=== PATIENT | male | born 1970 | race Caucasian/White ===

== ENCOUNTER 2024-03-30 11:21 | Outpatient (CLI) | payer OTHER, SELFPAY ==
[2024-03-30 12:55] LABS: INR 0.9; Prothrombin Time 12.1 Seconds (11.1-14.7)
[2024-03-30 13:05] LABS: Alanine Aminotransferase 50 U/L (6-50); Albumin Level 4.7 g/dL (3.5-5.1); Alkaline Phosphatase 61 U/L (38-126); Aspartate Amino Transferase 51 U/L (17-59); Bilirubin,Total 0.5 mg/dL (0.2-1.3)
[2024-03-30 13:48] LABS: Hepatitis B Surface Antigen Negative (Negative)
[2024-03-30 13:55] LABS: HAV RESULT Negative (Negative)
[2024-03-30 14:06] LABS: Hepatitis C Virus Antibody Negative (Negative)
[2024-03-30 14:11] LABS: Hepatitis B Core IgM Result Negative (Negative)
[2024-04-01 11:38] LABS: Alpha-1-Antitrypsin, QN 181 mg/dL (83-199)
[2024-04-03 11:43] LABS: LKM 1 Antibody <=20.0 U (<=20.0)
[2024-04-05 14:58] LABS: Actin Antibody (IgG) <20 U (<20)
[2024-04-13 11:49] LABS: Mitochondrial (M2) Ab (IgG) 21.1 U
[2024-04-17 03:38] LABS: ALT 37 U/L (9-46); Alpha-2-Macroglobulin 207 mg/dL (106-279); Apolipoprotein A1 206 mg/dL (94-176); Fibrosis Score 0.09; Fibrosis Stage F0; GGT 43 U/L (3-95); Haptoglobin 182 mg/dL (43-212); Necroinflammat Act Grade A0; Total Bilirubin 0.3 mg/dL (0.2-1.2)
== END 2024-03-30 11:22 | disposition home or self-care (01) ==
LOC: ANHLAB 11:23
PROVIDERS: Visit Provider Nurse Practitioner Family
DX: R79.89 Other specified abnormal findings of blood chemistry (principal)
CPT/HCPCS: 36415; 80074; 80076; 81596; 82103; 82977; 83520; 85610; 86364; 86376

== ENCOUNTER 2024-12-14 14:22 | Outpatient (CLI) | payer OTHER, SELFPAY ==
--- NOTE | ~2024-12-14 | US_ITS ---
EXAMINATION: US carotid duplex BI DATE: 12/14/2024 15:11 INDICATION: Abnormal findings of diagnostic imaging on outside institution CT. TECHNIQUE: Grayscale, color Doppler, and pulsed Doppler images of the cervical carotid arteries were obtained. The degree of vessel stenosis is placed in one of the following categories: normal, <50%, 5 0-69%, >=70% but less than near-occlusion, near-occlusion, or total occlusion. Note that percent sten osis relative to normal distal artery lumen diameter is indirectly measured from velocity measurement s as described by Ken, et al. Radiology 2003; 229:340-346. COMPARISON: None. FINDINGS: RIGHT: The right common carotid artery (CCA) peak systolic velocity (PSV) is 81 cm/s. The right internal car otid artery (ICA) PSV is 75 cm/s. The right ICA end-diastolic velocity (EDV) is 27 cm/s. The right IC A/CCA PSV ratio is 0.9. Grayscale and color Doppler images yield an estimate of <50% diameter reducti on from plaque in the ICA. The external carotid artery (ECA) PSV is 122 cm/s. There is antegrade flow in the right vertebral artery. LEFT: The left CCA PSV is 79 cm/s. The left ICA PSV is 69 cm/s. The left ICA EDV is 23 cm/s. The left ICA/C CA PSV ratio is 0.9. Grayscale and color Doppler images yield an estimate of <50% diameter reduction from plaque in the ICA. The ECA PSV is 101 cm/s. There is antegrade flow in the left vertebral artery . IMPRESSION: 1. <50% stenosis in the right internal carotid artery. 2. <50% stenosis in the left internal carotid artery. Reviewed, dictated and finalized at location A. OVEMENT DIRECTOR
--- OUTSIDE RECORDS SUMMARY | 2024-12-14 14:40 | XMS_ITS | Data Portability ---
Author Organization [facility] Address [address] [facility] [place] [address] Care Team Providers Care Brinell Tester Name Role Phone CHENTE RIVERA Primary Care Provider Assessment Encounter Date Assessment Date Assessment LastModified by Organization Details LastModified Time 02/13/2024 02/13/2024 He has been advised to stop smoking he is not interested in anything as far smoking cessation goes he has been warned of the ill effects of tobacco which were included but not limited to increased tumors of the aerodigestive tract increased incidence of heart attack stroke and cancer that could lead to sudden or chronic medical illness. He has also been asked to cut down on his drinking he says that right now he is not interested in doing that cancer heart disease liver disease leading to cirrhosis chronic medical illness or through a variety of cancers and through liver disease and increase in heart attack and other cardiovascular ailments have been discussed and he voiced understanding I will see him back in a month we will follow-up with liver ultrasound repeat liver studies as well as other testing MICHELLE copper iron ferritin ceruloplasmin but I suspect that his increased LFTs are from his drinking low-fat diet recheck his cholesterol status. Bee [email or web address] Not available 02/14/2024 14:59:25 05/12/2024 05/12/2024 he was warned of the ill effects of tobacco which were included but not limited to increased tumors of multiple organ systems increase incidence of heart attack stroke and cancer that can lead to sudden or chronic medical illness. He was told that if he does have alcohol liver disease imperative he quit drinking he is not interested in that right now also with fatty liver was told that he needs to quit drinking. It was discussed that he could have alcoholic liver disease or fatty liver and that progression to cirrhosis is the possibility that could end up and a life-threatening situation and necessitating a liver transplant. Follow up with me in 2 months. We will refer to hepatology at [facility] [email or web address] Not available 05/13/2024 07:44:26 08/18/2024 08/18/2024 continue current therapy he will follow up with me in 4 months smoking cessation abstinence from alcohol discussed dyslipidemia continue with his atorvastatin. Continues with his Creon for his exocrine pancreatic insufficiency. Blood work has been ordered. Cologuard was negative this year [email or web address] Not available 09/07/2024 21:35:16 Plan of Treatment Reminders Order Date Submit Date Provider Last Modified By Organization Details Last Modified Time Details Appointments ANY 15 2024 09:00A Heather Rivera MD Not available Not available Not available Lab CBC w/ auto diff 2023 [facility], [address] [place] [address], [facility] [address], [place], [address], 08/24/2024 09:14:31 lipid panel, serum 2023 024 [facility], [address] [facility], [address], [place], [address], 08/24/2024 09:14:28 CMP, serum or plasma 2023 024 [facility], [address] [place] [address], [facility] [address], [place], [address], 08/24/2024 09:14:29 PSA, total, serum or plasma 2023 024 [facility], [address] [facility], [address], [place], [address], 02/20/2024 15:10:49 noninva sive colorec junior cancer DNA + occult blood screeni ng, QL, stool 2023 024 [facility] (Cologuard Orders Only), [address], [address], [place], [address], 03/06/2024 12:19:31 MICHELLE (antinu clear antibod ies) screen, serum 2023 [facility], [address] [facility] [address], [address], [place], [place], [address], 02/20/2024 15:10:46 copper, serum or plasma 2023 024 [facility], [address] [facility] [address], [address], [place], [address], 02/20/2024 15:10:48 cerulop lasmin, serum 2023 [facility], [address] [place] [address] [address], [address], [place], [place], [address], 02/20/2024 15:10:47 iron + TIBC + ferriti n, serum 2023 024 [facility], [facility] [address], [address], [place], [address], 02/20/2024 15:10:50 lipid panel, serum 2023 024 [facility], [address] [place], [place] [address]monty [address], [address], [place], [address], 02/19/2024 06:22:54 CMP, serum or plasma 2023 024 [facility], [address] [facility] [address], [address], [place], [address], 02/19/2024 06:22:55 CBC w/ auto diff 2023 024 [facility], [address] [place] [address] [address], [address], [place], [place], [address], 02/19/2024 06:22:56 urinaly sis, microsc opic 2023 024 [facility], [address], [address], [place], [address], 02/20/2024 15:10:47 Referral hepatol ogist referra l 2023 024 [facility], [address] [place], [address], 11/04/2024 08:30:12 Procedures None recorde d. Surgeries None recorde d. Imaging US, liver 2023 024 [facility] [[email or web address] ([facility] Sched[facility]), [address] [place], [address], 03/01/2024 11:22:04 Medication Orders albuter ol sulfate HFA 90 mcg/act uation aerosol inhaler 2022 023 [facility], [address] [place] [address], [id number], 08/07/2023 13:28:59 Breo Ellipta 100 mcg-25 mcg/dos e powder for inhalat ion 2022 023 [facility], [address] [place] [address], [id number], 02/13/2024 11:57:48 Patient TargetsNo targets recorded. Patient Instructions Encounter Date Encounter Id Patient Instructions Last Modified By Organization Details Last Modified Time 02/05/2023 [id number] Quitting Tobacco : Care Instructions [facility] Not available 02/05/2023 13:44:48 Quitting Tobacco : Care Instructions [facility] Not available 02/05/2023 13:44:48 chronic obstructive pulmonary disease (COPD): care instructions [facility] Not available 02/05/2023 13:44:47 learning about copd and how to prevent lung infections [facility] Not available 02/05/2023 13:44:47 08/07/2023 [id number] chronic obstructive pulmonary disease (COPD): care instructions [facility] Not available 08/07/2023 13:13:29 learning about copd and how to prevent lung infections [email or web address] Not available 08/07/2023 13:13:29 05/12/2024 [id number] Quitting Tobacco : Care Instructions [email or web address] Not available 05/12/2024 17:42:58 Reason for Referral Pediatrician Referral for He patomegaly Referring Physician: Chente Rivera, Internal Medicine, Encounter Date: 05/12/2024 Results Created Date Observation Date Name Description Value Unit Range Abnormal Flag Note LastModifiedBy Organization Detail LastModifiedTime 09/03/2009/03/2023 COMP. METAB OLIC PANEL (14) glucose 63 mg/dL 70-99 below low normal Not Available [facility] [address] [place], [address], 09/04/2023 06:17:27 09/03/20 23 09/03/2023 COMP. METAB OLIC PANEL (14) BUN 10 mg/dL 6-24 Not Available [facility] [address] [place], [address], 09/04/2023 06:17:27 09/03/2009/03/2023 COMP. METAB OLIC PANEL (14) creatinine 0.86 mg/dL 0.76-1 .27 Not Available [facility] [address] [place], [address], 09/04/2023 06:17:27 09/03/2009/03/2023 COMP. METAB OLIC PANEL (14) eGFR 105 >=60 Units for eGFR value s are mL/mi n/1.7 3 The eGFR Calcu latio n has not been valid ated for patie nts under the age of 18. If test resul ts are displ ayed for a patie nt under the age of 18, disre chris that value . Not Available [facility] [address] [place], [address], 09/04/2023 06:17:27 09/03/20 23 09/03/2023 COMP. METAB OLIC PANEL (14) BUN/creatini ne ratio 11 9-20 Not Available [facility] Department [address] [place] [address], [address], 09/04/2023 06:17:27 09/03/20 23 09/03/2023 COMP. METAB OLIC PANEL (14) sodium 141 mmol/ L 134-14 4 Not Available [facility] [address] [place] [address], [address], 09/04/2023 06:17:27 09/03/20 23 09/03/2023 COMP. METAB OLIC PANEL (14) potassium 6.0 mmol/ L 3.5-5. 2 above high normal RESUL TS VERIF IED AND CARRILLO D TO [] BY Hang cat RN PROCEDURE AT 2008 ON 09/03. Not Available [facility] [address] [place] [address], [address], 09/04/2023 06:17:27 09/03/20 23 09/03/2023 COMP. METAB OLIC PANEL (14) chloride 101 mmol/ L 96-106 Not Available [facility] [address] [place] [address], [address], 09/04/2023 06:17:27 09/03/20 23 09/03/2023 COMP. METAB OLIC PANEL (14) carbon dioxide, total 25 mmol/ L 20-29 Not Available [facility] [address] [place] [address], [address], 09/04/2023 06:17:27 09/03/20 23 09/03/2023 COMP. METAB OLIC PANEL (14) calcium 10.0 mg/dL 8.7-10 .2 Not Available [facility] [address] [place] [address], [address], 09/04/2023 06:17:27 09/03/20 23 09/03/2023 COMP. METAB OLIC PANEL (14) protein, total 7.5 g/dL 6.0-8. 5 Not Available [facility] [address] [place], [address], 09/04/2023 06:17:27 09/03/20 23 09/03/2023 COMP. METAB OLIC PANEL (14) albumin 4.9 g/dL 3.8-4. 9 Not Available [facility] [address] [place], [address], 09/04/2023 06:17:27 09/03/20 23 09/03/2023 COMP. METAB OLIC PANEL (14) globulin, total 2.6 g/dL 1.5-4. 5 Not Available [facility] [address] [place], [address], 09/04/2023 06:17:27 09/03/20 23 09/03/2023 COMP. METAB OLIC PANEL (14) A/G ratio 1.9 1.2-2. 2 Not Available [facility] [address] [place], [address], 09/04/2023 06:17:27 09/03/20 23 09/03/2023 COMP. METAB OLIC PANEL (14) bilirubin, total 0.3 mg/dL 0.0-1. 2 Not Available [facility] [address] [place], [address], 09/04/2023 06:17:27 09/03/20 23 09/03/2023 COMP. METAB OLIC PANEL (14) alkaline phosphatase 79 IU/L 44-121 Not Available [facility] Department [address] [place], [address], 09/04/2023 06:17:27 09/03/20 23 09/03/2023 COMP. METAB OLIC PANEL (14) AST (SGOT) 158 IU/L 0-40 above high normal Not Available [facility] [address] [place], [address], 09/04/2023 06:17:27 09/03/2009/03/2023 COMP. METAB OLIC PANEL (14) ALT (SGPT) 162 IU/L 0-44 above high normal Not Available [facility] [address] [place], [address], 09/04/2023 06:17:27 09/03/2009/03/2023 CBC WITH DIFFE RENTI AL/PL ATELE T WBC 4.9 x10e3 /uL 3.4-10 .8 Not Available [facility] [address] [place], [address], 09/04/2023 06:17:27 09/03/2009/03/2023 CBC WITH DIFFE RENTI AL/PL ATELE T RBC 5.18 x10e6 /uL 4.14-5 .80 Not Available [facility] [address] [place], [address], 09/04/2023 06:17:27 09/03/2009/03/2023 CBC WITH DIFFE RENTI AL/PL ATELE T hemoglobin 16.4 g/dL 13.0-1 7.7 Not Available [facility] [address] [place], [address], 09/04/2023 06:17:27 09/03/2009/03/2023 CBC WITH DIFFE RENTI AL/PL ATELE T hematocrit 50.9 % 37.5-5 1.0 Not Available [facility] [address] [place], [address], 09/04/2023 06:17:27 09/03/2009/03/2023 CBC WITH DIFFE RENTI AL/PL ATELE T MCV 98 fL 79-97 above high normal Not Available [facility] [address] [place], [address], 09/04/2023 06:17:27 09/03/2009/03/2023 CBC WITH DIFFE RENTI AL/PL ATELE T MCH 31.7 pg 26.6-3 3.0 Not Available [facility] [address] [place], [address], 09/04/2023 06:17:27 09/03/20 23 09/03/2023 CBC WITH DIFFE RENTI AL/PL ATELE T MCHC 32.2 g/dL 31.5-3 5.7 Not Available [facility] [address] [place], [address], 09/04/2023 06:17:27 09/03/2009/03/2023 CBC WITH DIFFE RENTI AL/PL ATELE T RDW 12.4 % 11.5-1 4.5 Not Available [facility] [address] [place], [address], 09/04/2023 06:17:27 09/03/2009/03/2023 CBC WITH DIFFE RENTI AL/PL ATELE T platelets 209 x10e3 /uL 150-45 0 Not Available [facility] [address] [place], [address], 09/04/2023 06:17:27 09/03/20 23 09/03/2023 CBC WITH DIFFE RENTI AL/PL ATELE T neutrophils 41 % notest b. Not Available [facility] [address] [place], [address], 09/04/2023 06:17:27 09/03/20 23 09/03/2023 CBC WITH DIFFE RENTI AL/PL ATELE T lymphs 42 % notest b. Not Available [facility] [address] [place], [address], 09/04/2023 06:17:27 09/03/20 23 09/03/2023 CBC WITH DIFFE RENTI AL/PL ATELE T monocytes 12 % notest b. Not Available [facility] [address] [place], [address], 09/04/2023 06:17:27 09/03/2009/03/2023 CBC WITH DIFFE RENTI AL/PL ATELE T eos 4 % notest b. Not Available [facility] [address] [place], [address], 09/04/2023 06:17:27 09/03/20 23 09/03/2023 CBC WITH DIFFE RENTI AL/PL ATELE T basos 1 % notest b. Not Available [facility] [address] [place], [address], 09/04/2023 06:17:27 09/03/2009/03/2023 CBC WITH DIFFE RENTI AL/PL ATELE T neutrophils (absolute) 2.0 x10e3 /uL 1.4-7. 0 Not Available [facility] [address] [place], [address], 09/04/2023 06:17:27 09/03/2009/03/2023 CBC WITH DIFFE RENTI AL/PL ATELE T lymphs (absolute) 2.1 x10e3 /uL 0.7-3. 1 Not Available [facility] [address] [place], [address], 09/04/2023 06:17:27 09/03/2009/03/2023 CBC WITH DIFFE RENTI AL/PL ATELE T monocytes(ab solute) 0.6 x10e3 /uL 0.1-0. 9 Not Available [facility] [address] [place], [address], 09/04/2023 06:17:27 09/03/2009/03/2023 CBC WITH DIFFE RENTI AL/PL ATELE T eos (absolute) 0.2 x10e3 /uL 0.0-0. 4 Not Available [facility] [address] [place] [address], [address], 09/04/2023 06:17:27 09/03/2009/03/2023 CBC WITH DIFFE RENTI AL/PL ATELE T baso (absolute) 0.1 x10e3 /uL 0.0-0. 2 Not Available [facility] [address] [place], [address], 09/04/2023 06:17:27 09/03/2009/03/2023 CBC WITH DIFFE RENTI AL/PL ATELE T immature granulocytes 0.2 % notest b. Not Available [facility] [address] [place], [address], 09/04/2023 06:17:27 09/03/2009/03/2023 CBC WITH DIFFE RENTI AL/PL ATELE T immature grans (abs) 0.0 x10e3 /uL 0.0-0. 1 Not Available [facility] [address] [place], [address], 09/04/2023 06:17:27 09/03/2009/03/2023 CBC WITH DIFFE RENTI AL/PL ATELE T NRBC 0 % 0-0 Not Available [facility] [address] [place], [address], 09/04/2023 06:17:27 10/09/2010/10/2023 HCV ANTIB LILIANA hep C virus Ab Non Reacti ve nonrea ctive HCV antib liliana alone does not diffe renti ate betwe en previ ously resol domingo infec tion and activ e infec tion. Equiv ocal and React hong HCV antib liliana resul ts shoul d be follo wed up with an HCV RNA test to suppo rt the diagn osis of activ e HCV infec tion. Not Available [facility] ([facility]) [address] [facility], [place], [address], 10/10/2023 09:15:23 10/09/20 23 10/10/2023 HBSAG SCREE N HBsAg screen Negati ve negati ve Not Available [facility] ([facility]) [address] [facility], [place], [address], 10/10/2023 09:15:24 02/18/20 24 02/19/2024 LIPID PANEL cholesterol, total 225 mg/dL 100-19 9 above high normal Not Available [facility] [address] [place] [address], [address], 02/19/2024 06:22:54 02/18/20 24 02/19/2024 LIPID PANEL triglyceride s 50 mg/dL 0-149 Not Available [facility] Department [address] [place] [address], [address], 02/19/2024 06:22:54 02/18/20 24 02/19/2024 LIPID PANEL HDL cholesterol 89 mg/dL 40-999 Not Available [facility] Department [address] [place] [address], [address], 02/19/2024 06:22:54 02/18/20 24 02/19/2024 LIPID PANEL VLDL cholesterol elba 10 mg/dL 5-40 Not Available [facility] Department [address] [place] [address], [address], 02/19/2024 06:22:54 02/18/20 24 02/19/2024 LIPID PANEL LDL chol calc (nih) 134 mg/dL 0-99 above high normal Not Available [facility] [address] [place] [address], [address], 02/19/2024 06:22:54 02/18/20 24 02/19/2024 COMP. METAB OLIC PANEL (14) glucose 73 mg/dL 70-99 Not Available [facility] [address] [place] [address], [address], 02/19/2024 06:22:55 02/18/20 24 02/19/2024 COMP. METAB OLIC PANEL (14) BUN 16 mg/dL 6-24 Not Available [facility] [address] [place] [address], [address], 02/19/2024 06:22:55 02/18/20 24 02/19/2024 COMP. METAB OLIC PANEL (14) creatinine 0.82 mg/dL 0.76-1 .27 Not Available [facility] [address] [place] [address], [address], 02/19/2024 06:22:55 02/18/20 24 02/19/2024 COMP. METAB OLIC PANEL (14) eGFR 106 >=60 Units for eGFR value s are mL/mi n/1.7 3 The eGFR Calcu latio n has not been valid ated for patie nts under the age of 18. If test resul ts are displ ayed for a patie nt under the age of 18, disre chris that value . Not Available [facility] [address] [place] [address], [address], 02/19/2024 06:22:55 02/18/20 24 02/19/2024 COMP. METAB OLIC PANEL (14) BUN/creatini ne ratio 20 9-20 Not Available [facility] Department [address] [place] [address], [address], 02/19/2024 06:22:55 02/18/20 24 02/19/2024 COMP. METAB OLIC PANEL (14) sodium 141 mmol/ L 134-14 4 Not Available [facility] [address] [place] [address], [address], 02/19/2024 06:22:55 02/18/20 24 02/19/2024 COMP. METAB OLIC PANEL (14) potassium 5.5 mmol/ L 3.5-5. 2 above high normal Not Available [facility] [address] [place] [address], [address], 02/19/2024 06:22:55 02/18/20 24 02/19/2024 COMP. METAB OLIC PANEL (14) chloride 100 mmol/ L 96-106 Not Available [facility] [address] [place] [address], [address], 02/19/2024 06:22:55 02/18/20 24 02/19/2024 COMP. METAB OLIC PANEL (14) carbon dioxide, total 26 mmol/ L 20-29 Not Available [facility] [address] [place] [address], [address], 02/19/2024 06:22:55 02/18/20 24 02/19/2024 COMP. METAB OLIC PANEL (14) calcium 10.1 mg/dL 8.7-10 .2 Not Available [facility] [address] [place] [address], [address], 02/19/2024 06:22:55 02/18/20 24 02/19/2024 COMP. METAB OLIC PANEL (14) protein, total 7.8 g/dL 6.0-8. 5 Not Available [facility] [address] [place] [address], [address], 02/19/2024 06:22:55 02/18/20 24 02/19/2024 COMP. METAB OLIC PANEL (14) albumin 5.0 g/dL 3.8-4. 9 above high normal Not Available [facility] [address] [place] [address], [address], 02/19/2024 06:22:55 02/18/20 24 02/19/2024 COMP. METAB OLIC PANEL (14) globulin, total 2.8 g/dL 1.5-4. 5 Not Available [facility] [address] [place] [address], [address], 02/19/2024 06:22:55 02/18/20 24 02/19/2024 COMP. METAB OLIC PANEL (14) A/G ratio 1.7 1.2-2. 2 Not Available [facility] [address] [place] [address] [place], [address], 02/19/2024 06:22:55 02/18/2002/19/2024 COMP. METAB OLIC PANEL (14) bilirubin, total 0.3 mg/dL 0.0-1. 2 Not Available [facility] [address] [place], [address], 02/19/2024 06:22:55 02/18/20 24 02/19/2024 COMP. METAB OLIC PANEL (14) alkaline phosphatase 87 IU/L 44-121 Not Available [facility] Department [address] [place], [address], 02/19/2024 06:22:55 02/18/20 24 02/19/2024 COMP. METAB OLIC PANEL (14) AST (SGOT) 42 IU/L 0-40 above high normal Not Available [facility] [address] [place], [address], 02/19/2024 06:22:55 02/18/20 24 02/19/2024 COMP. METAB OLIC PANEL (14) ALT (SGPT) 53 IU/L 0-44 above high normal Not Available [facility] [address] [place], [address], 02/19/2024 06:22:55 02/18/2002/18/2024 CBC WITH DIFFE RENTI AL/PL ATELE T WBC 5.3 x10e3 /uL 3.4-10 .8 Not Available [facility] [address] [place], [address], 02/19/2024 06:22:56 02/18/2002/18/2024 CBC WITH DIFFE RENTI AL/PL ATELE T RBC 5.25 x10e6 /uL 4.14-5 .80 Not Available [facility] [address] [place], [address], 02/19/2024 06:22:56 04/24/20 24 02/18/2024 CBC WITH DIFFE RENTI AL/PL ATELE T hemoglobin 16.9 g/dL 13.0-1 7.7 Not Available [facility] [address] [place], [address], 02/19/2024 06:22:56 02/18/2002/18/2024 CBC WITH DIFFE RENTI AL/PL ATELE T hematocrit 51.5 % 37.5-5 1.0 above high normal Not Available [facility] [address] [place], [address], 02/19/2024 06:22:56 02/18/2002/18/2024 CBC WITH DIFFE RENTI AL/PL ATELE T MCV 98 fL 79-97 above high normal Not Available [facility] [address] [place], [address], 02/19/2024 06:22:56 02/18/2002/18/2024 CBC WITH DIFFE RENTI AL/PL ATELE T MCH 32.2 pg 26.6-3 3.0 Not Available [facility] [address] [place], [address], 02/19/2024 06:22:56 02/18/20 24 02/18/2024 CBC WITH DIFFE RENTI AL/PL ATELE T MCHC 32.8 g/dL 31.5-3 5.7 Not Available [facility] [address] [place], [address], 02/19/2024 06:22:56 02/18/2002/18/2024 CBC WITH DIFFE RENTI AL/PL ATELE T RDW 12.4 % 11.5-1 4.5 Not Available [facility] [address] [place], [address], 02/19/2024 06:22:56 02/18/2002/18/2024 CBC WITH DIFFE RENTI AL/PL ATELE T platelets 246 x10e3 /uL 150-45 0 Not Available [facility] [address] [place], [address], 02/19/2024 06:22:56 02/18/2002/18/2024 CBC WITH DIFFE RENTI AL/PL ATELE T neutrophils 49 % notest b. Not Available [facility] [address] [place], [address], 02/19/2024 06:22:56 02/18/20 24 02/18/2024 CBC WITH DIFFE RENTI AL/PL ATELE T lymphs 32 % notest b. Not Available [facility] [address] [place], [address], 02/19/2024 06:22:56 02/18/2002/18/2024 CBC WITH DIFFE RENTI AL/PL ATELE T monocytes 16 % notest b. Not Available [facility] [address] [place], [address], 02/19/2024 06:22:56 02/18/2002/18/2024 CBC WITH DIFFE RENTI AL/PL ATELE T eos 3 % notest b. Not Available [facility] [address] [place], [address], 02/19/2024 06:22:56 02/18/2002/18/2024 CBC WITH DIFFE RENTI AL/PL ATELE T basos 1 % notest b. Not Available [facility] [address] [place], [address], 02/19/2024 06:22:56 02/18/2002/18/2024 CBC WITH DIFFE RENTI AL/PL ATELE T neutrophils (absolute) 2.6 x10e3 /uL 1.4-7. 0 Not Available [facility] [address] [place] [address], [address], 02/19/2024 06:22:56 02/18/20 24 02/18/2024 CBC WITH DIFFE RENTI AL/PL ATELE T lymphs (absolute) 1.7 x10e3 /uL 0.7-3. 1 Not Available [facility] [address] [place], [address], 02/19/2024 06:22:56 02/18/20 24 02/18/2024 CBC WITH DIFFE RENTI AL/PL ATELE T monocytes(ab solute) 0.9 x10e3 /uL 0.1-0. 9 Not Available [facility] [address] [place], [address], 02/19/2024 06:22:56 02/18/20 24 02/18/2024 CBC WITH DIFFE RENTI AL/PL ATELE T eos (absolute) 0.1 x10e3 /uL 0.0-0. 4 Not Available [facility] [address] [place], [address], 02/19/2024 06:22:56 02/18/20 24 02/18/2024 CBC WITH DIFFE RENTI AL/PL ATELE T baso (absolute) 0.1 x10e3 /uL 0.0-0. 2 Not Available [facility] [address] [place], [address], 02/19/2024 06:22:56 02/18/20 24 02/18/2024 CBC WITH DIFFE RENTI AL/PL ATELE T immature granulocytes 0.4 % notest b. Not Available [facility] [address] [place], [address], 02/19/2024 06:22:56 02/18/20 24 02/18/2024 CBC WITH DIFFE RENTI AL/PL ATELE T immature grans (abs) 0.0 x10e3 /uL 0.0-0. 1 Not Available [facility] [address] [place], [address], 02/19/2024 06:22:56 02/18/20 24 02/18/2024 CBC WITH DIFFE RENTI AL/PL ATELE T NRBC 0 % 0-0 Not Available [facility] [address], [place], [address], 02/19/2024 06:22:56 02/18/20 24 02/19/2024 MICHELLE W/REF ROJELIO MICHELLE direct Negati ve negati ve Not Available [facility] ([facility]) [address] [facility], [place], [address], 02/20/2024 15:10:46 02/18/20 24 02/19/2024 MICRO SCOPI C EXAMI NATIO N WBC None seen /hpf 0-5 Not Available [facility] ([facility]) [address] [facility], [place], [address], 02/20/2024 15:10:47 02/18/20 24 02/19/2024 MICRO SCOPI C EXAMI NATIO N RBC None seen /hpf 0-2 Not Available [facility] ([facility]) [address] [facility], [place], [address], 02/20/2024 15:10:47 02/18/20 24 02/19/2024 MICRO SCOPI C EXAMI NATIO N epithelial cells (non renal) None seen /hpf 0-10 Not Available [facility] ([facility]) [address] [facility], [place], [address], 02/20/2024 15:10:47 02/18/20 24 02/19/2024 MICRO SCOPI C EXAMI NATIO N casts None seen /lpf nonese en Not Available [facility] ([facility]) [address] [facility], [place], [address], 02/20/2024 15:10:47 02/18/20 24 02/19/2024 MICRO SCOPI C EXAMI NATIO N bacteria None seen nonese en/few Not Available [facility] ([facility]) [address] [facility], [place], [address], 02/20/2024 15:10:47 02/18/2002/19/2024 CERUL OPLAS MIN ceruloplasmi n 22.1 mg/dL 16.0-3 1.0 Not Available [facility] ([facility]) [address] [facility], [place], [address], 02/20/2024 15:10:47 02/18/2002/20/2024 COPPE R, SERUM OR PLASM A copper, serum or plasma 84 ug/dL 69-132 Detec tion Limit = 5 Not Available [facility] ([facility]) [address] [facility], [place], [address], 02/20/2024 15:10:48 02/18/2002/19/2024 PROST ATE-S PECIF IC AG prostate specific Ag 1.0 NG/mL 0.0-4. 0 Blossom ECLIA metho dolog y. Accor ding to the Ameri can Urolo gical Assoc iatio n, Serum PSA shoul d decre ase and remai n at undet ectab le level s after radic al prost atect sharmin. The AUA defin es bioch emica l recur rence as an initi al PSA value 0.2 ng/mL or great er follo wed by a subse quent confi rmato ry PSA value 0.2 ng/mL or great er. Value s obtai aris with diffe rent assay metho ds or kits canno t be used inter jaeger eably . Resul ts canno t be inter prete d as absol pass[place]dy evide nce of the prese nce or absen ce of man worley se. Not Available [facility] ([facility]) [address] [facility], [place], [address], 02/20/2024 15:10:49 02/18/2002/19/2024 FE+TI BC+FE R iron bind.cap.(TI BC) 321 ug/dL 250-45 0 Not Available [facility] ([facility]) [address] [facility], [place], [address], 02/20/2024 15:10:49 02/18/20 24 02/19/2024 FE+TI BC+FE R UIBC 190 ug/dL 111-34 3 Not Available [facility] ([facility]) [address] [facility], [place], [address], 02/20/2024 15:10:49 02/18/20 24 02/19/2024 FE+TI BC+FE R iron 131 ug/dL 38-169 Not Available [facility] ([facility]) [address] [place], [address], 02/20/2024 15:10:49 02/18/20 24 02/19/2024 FE+TI BC+FE R iron saturation 41 % 15-55 Not Available [facility] ([facility]) [address] [facility], [place], [address], 02/20/2024 15:10:49 02/18/20 24 02/19/2024 FE+TI BC+FE R ferritin 405 NG/mL 30-400 above high normal Not Available [facility] ([facility]) [address] [facility], [place], [address], 02/20/2024 15:10:49 02/28/2002/28/2024 COLOG UARD cologuard result reportable Negati ve negati ve normal NEGAT HONG TEST RESUL T. A negat hong Colog uard resul t indic ates a low likel ihood that a color ectal cance r (CRC) or advan cathie adeno ma (anthony omato us polyp s with more advan cathie pre-m align ant featu res) is prese nt. The [facility] e that a perso n with a negat hong Colog uard test has a color ectal cance r is less than 1 in 1500 (nega tive predi ctive value >99.9 %) or has an advan cathie adeno ma is less than 5.3% (nega tive predi ctive value 94.7% ). These data are based on a prosp ectiv e cross -sect ional study of 10,00 0 indiv idual s at [facility] risk for color ectal cance r who were scree aris with both Colog uard and colon oscop y. (Hardeep Arenas. et al, N Engl J Med 2014; 370(1 4):12 86-12 97) The clark l value (refe rence range ) for this assay is negat hong. COLOG UARD RE-SC REENI NG RECOM MENDA TION: Perio dic color ectal cance r scree nayana is an impor tant part of preve ntive healt hcare for asymp tomat ic indiv idual s at [place] [facility] risk for color ectal cance r. Follo wing a negat hong Colog uard resul t, the Ameri can Cance r Socie ty and U.S. Multi -Soci ety Task Force scree nayana guide lines recom mend a Colog uard re-sc reeni ng inter todd of 3 years . Refer ences : Ameri can Cance r Socie ty Guide line for Color ectal Cance r Scree nayana: https ://mark dean.brian cer.o rg/ca ncer/ colon -rect al-ca ncer/ detec tion- diagn osis- stagi ng/ac s-rec ommen datio ns.ht ml.; Enoch BELTRE, Lucy GLASER, Amy DOTSON, Color ectal Cance r Scree nayana: Recom menda tions for Physi cians and Patie nts from the U.S. Multi -Soci ety Task Force on Color ectal Cance r Scree nayana , Am Sandrita Gastr fionante rolog y 2017; 112:1 016-1 030. TEST DESCR IPTIO N: [place] algor ithmi c keaton sis of stool DNA-b iodemar kers with hemog lobin immun oassa y. Quant itati ve value s of indiv idual bioma rkers are not repor table and are not assoc iated with indiv idual bioma rker resul t refer ence range s. Colog uard is inten ded for color ectal cance r scree nayana of adult s of eithe r sex, 45 years or older , who are at [facility] for color ectal cance r (CRC) . Colog uard has been appro domingo for use by the U.S. FDA. The perfo rmanc e of Colog uard was estab lishe d in a cross secti onal study of [facility] adult s aged 50-84 . Colog uard perfo rmanc e in patie nts ages 45 to 49 years was estim ated by marco a-g grecia keaton sis of near- age group s. Colon oscop ies perfo rmed for a posit hong resul t may find as the most clini annamaria signi fican t lesio n: color ectal cance r [4.0% ], advan cathie adeno ma (incl uding sessi le adry elizabeth polyp s great er than or equal to 1cm diame ter) [20%] or non- advan cathie adeno ma [31%] ; or no color ectal neopl rosalba [45%] . These estim ates are deriv ed from a prosp ectiv e cross -sect ional scree nayana study of 0 indiv idual s at [facility] for color ectal cance r who were scree aris with both Colog uard and colon oscop y. (Hardeep Hernández et al, N Engl J Med 2014; 370(1 4):12 86-12 97.) Colog uard may produ ce a false negat hong or false posit hong resul t (no color ectal cance r or preca ncero us polyp prese nt at colon oscop y follo w up). A negat hong Colog uard test resul t does not guara ntee the absen ce of CRC or advan cathie adeno ma (pre- cance r). The curre nt Colog uard scree nayana inter todd is every 3 years . (Amer ican Cance r Socie ty and U.S. Multi -Soci ety Task Force ). Colog uard perfo rmanc e data in a 10,00 0 patie nt pivot al study using colon oscop y as the refer ence metho d can be acces sed at the follo wing locat ion: www.e xactl abs.c om/re luz . Addit ional descr iptio n of the Colog uard test proce ss, warni ngs and preca ution s can be found at www.c natasha vazquezd.c om. Not Available [facility] (Cologuard Orders Only) [address], [place], [address], 03/06/2024 12:19:31 08/23/2008/24/2024 LIPID PANEL cholesterol, total 236 mg/dL 100-19 9 above high normal Not Available [facility] ([facility]) [address] [place], [address], 08/24/2024 09:14:28 08/23/2008/24/2024 LIPID PANEL triglyceride s 152 mg/dL 0-149 above high normal Not Available [facility] ([facility]) [address] [place], [address], 08/24/2024 09:14:28 08/23/2008/24/2024 LIPID PANEL HDL cholesterol 46 mg/dL >39 Not Available [facility] ([facility]) [address] [place], [address], 08/24/2024 09:14:28 08/23/2008/24/2024 LIPID PANEL VLDL cholesterol elba 28 mg/dL 5-40 Not Available [facility] ([facility]) [address] [place], [address], 08/24/2024 09:14:28 08/23/2008/24/2024 LIPID PANEL LDL chol calc ([facility]) 162 mg/dL 0-99 above high normal Not Available [facility] ([facility]) [address] [place], [address], 08/24/2024 09:14:28 08/23/20 24 08/24/2024 COMP. METAB OLIC PANEL (14) glucose 148 mg/dL 70-99 above high normal Not Available [facility] ([facility]) [address] [place], [address], 08/24/2024 09:14:29 08/23/20 24 08/24/2024 COMP. METAB OLIC PANEL (14) BUN 16 mg/dL 6-24 Not Available [facility] ([facility]) [address] [place], [address], 08/24/2024 09:14:29 08/23/2008/24/2024 COMP. METAB OLIC PANEL (14) creatinine 1.02 mg/dL 0.76-1 .27 Not Available [facility] ([facility]) [address] [facility], [place], [address], 08/24/2024 09:14:29 08/23/20 24 08/24/2024 COMP. METAB OLIC PANEL (14) eGFR 88 mL/mi n/1.7 3 >59 Not Available [facility] ([facility]) [address] [place], [address], 08/24/2024 09:14:29 08/23/20 24 08/24/2024 COMP. METAB OLIC PANEL (14) BUN/creatini ne ratio 16 9-20 Not Available [facility] ([facility]) [address] [place], [address], 08/24/2024 09:14:29 08/23/20 24 08/24/2024 COMP. METAB OLIC PANEL (14) sodium 140 mmol/ L 134-14 4 Not Available [facility] ([facility]) [address] [place], [address], 08/24/2024 09:14:29 08/23/20 24 08/24/2024 COMP. METAB OLIC PANEL (14) potassium 5.4 mmol/ L 3.5-5. 2 above high normal Not Available [facility] ([facility]) [address] [place], [address], 08/24/2024 09:14:29 08/23/2008/24/2024 COMP. METAB OLIC PANEL (14) chloride 100 mmol/ L 96-106 Not Available [facility] ([facility]) [address] [place], [address], 08/24/2024 09:14:29 08/23/2008/24/2024 COMP. METAB OLIC PANEL (14) carbon dioxide, total 24 mmol/ L Not Available [facility] ([facility]) [address] [place], [address], 08/24/2024 09:14:29 08/23/2008/24/2024 COMP. METAB OLIC PANEL (14) calcium 9.9 mg/dL 8.7-10 .2 Not Available [facility] ([facility]) [address] [place], [address], 08/24/2024 09:14:29 08/23/2008/24/2024 COMP. METAB OLIC PANEL (14) protein, total 7.0 g/dL 6.0-8. 5 Not Available [facility] ([facility]) [address] [place], [address], 08/24/2024 09:14:29 08/23/2008/24/2024 COMP. METAB OLIC PANEL (14) albumin 4.4 g/dL 3.8-4. 9 Not Available [facility] ([facility]) [address] [place], [address], 08/24/2024 09:14:29 08/23/20 24 08/24/2024 COMP. METAB OLIC PANEL (14) globulin, total 2.6 g/dL 1.5-4. 5 Not Available [facility] ([facility]) [address] [facility], [place], [address], 08/24/2024 09:14:29 08/23/2008/24/2024 COMP. METAB OLIC PANEL (14) bilirubin, total 0.4 mg/dL 0.0-1. 2 Not Available [facility] ([facility]) [address] [facility], [place], [address], 08/24/2024 09:14:29 08/23/2008/24/2024 COMP. METAB OLIC PANEL (14) alkaline phosphatase 89 IU/L 44-121 Not Available [facility] ([facility]) [address] [facility], [place], [address], 08/24/2024 09:14:29 08/23/20 24 08/24/2024 COMP. METAB OLIC PANEL (14) AST (SGOT) 23 IU/L 0-40 Not Available [facility] ([facility]) [address] [facility], [place], [address], 08/24/2024 09:14:29 08/23/2008/24/2024 COMP. METAB OLIC PANEL (14) ALT (SGPT) 31 IU/L 0-44 Not Available [facility] ([facility]) [address] [facility], [place], [address], 08/24/2024 09:14:29 08/23/2008/24/2024 CBC WITH DIFFE RENTI AL/PL ATELE T WBC 6.1 x10e3 /uL 3.4-10 .8 Not Available [facility] ([facility]) [address] [facility], [place], [address], 08/24/2024 09:14:31 08/23/2008/24/2024 CBC WITH DIFFE RENTI AL/PL ATELE T RBC 4.87 x10e6 /uL 4.14-5 .80 Not Available [facility] ([facility]) [address] [facility], [place], [address], 08/24/2024 09:14:31 08/23/2008/24/2024 CBC WITH DIFFE RENTI AL/PL ATELE T hemoglobin 15.7 g/dL 13.0-1 7.7 Not Available [facility] ([facility]) [address] [facility], [place], [address], 08/24/2024 09:14:31 08/23/2008/24/2024 CBC WITH DIFFE RENTI AL/PL ATELE T hematocrit 46.0 % 37.5-5 1.0 Not Available [facility] ([facility]) [address] [facility], [place], [address], 08/24/2024 09:14:31 08/23/2008/24/2024 CBC WITH DIFFE RENTI AL/PL ATELE T MCV 95 fL 79-97 Not Available [facility] ([facility]) [address] [facility], [place], [address], 08/24/2024 09:14:31 08/23/2008/24/2024 CBC WITH DIFFE RENTI AL/PL ATELE T MCH 32.2 pg 26.6-3 3.0 Not Available [facility] ([facility]) [address] [facility], [place], [address], 08/24/2024 09:14:31 08/23/2008/24/2024 CBC WITH DIFFE RENTI AL/PL ATELE T MCHC 34.1 g/dL 31.5-3 5.7 Not Available [facility] ([facility]) [address] [facility], [place], [address], 08/24/2024 09:14:31 08/23/2008/24/2024 CBC WITH DIFFE RENTI AL/PL ATELE T RDW 11.7 % 11.6-1 5.4 Not Available [facility] ([facility]) [address] [place], [address], 08/24/2024 09:14:31 08/23/2008/24/2024 CBC WITH DIFFE RENTI AL/PL ATELE T platelets 325 x10e3 /uL 150-45 0 Not Available [facility] ([facility]) [address] [facility], [place], [address], 08/24/2024 09:14:31 08/23/2008/24/2024 CBC WITH DIFFE RENTI AL/PL ATELE T neutrophils 49 % notest ab. Not Available [facility] ([facility]) [address] [facility], [place], [address], 08/24/2024 09:14:31 08/23/2008/24/2024 CBC WITH DIFFE RENTI AL/PL ATELE T lymphs 36 % notest ab. Not Available [facility] ([facility]) [address] [facility], [place], [address], 08/24/2024 09:14:31 08/23/2008/24/2024 CBC WITH DIFFE RENTI AL/PL ATELE T monocytes 10 % notest ab. Not Available [facility] ([facility]) [address] [facility], [place], [address], 08/24/2024 09:14:31 08/23/2008/24/2024 CBC WITH DIFFE RENTI AL/PL ATELE T eos 4 % notest ab. Not Available [facility] ([facility]) [address] [facility], [place], [address], 08/24/2024 09:14:31 08/23/2008/24/2024 CBC WITH DIFFE RENTI AL/PL ATELE T basos 1 % notest ab. Not Available [facility] ([facility]) [address] [facility], [place], [address], 08/24/2024 09:14:31 08/23/2008/24/2024 CBC WITH DIFFE RENTI AL/PL ATELE T neutrophils (absolute) 3.0 x10e3 /uL 1.4-7. 0 Not Available [facility] ([facility]) [address] [facility], [place], [address], 08/24/2024 09:14:31 08/23/20 24 08/24/2024 CBC WITH DIFFE RENTI AL/PL ATELE T lymphs (absolute) 2.2 x10e3 /uL 0.7-3. 1 Not Available [facility] ([facility]) [address] [facility], [place], [address], 08/24/2024 09:14:31 08/23/2008/24/2024 CBC WITH DIFFE RENTI AL/PL ATELE T monocytes(ab solute) 0.6 x10e3 /uL 0.1-0. 9 Not Available [facility] ([facility]) [address] [facility], [place], [address], 08/24/2024 09:14:31 08/23/20 24 08/24/2024 CBC WITH DIFFE RENTI AL/PL ATELE T eos (absolute) 0.2 x10e3 /uL 0.0-0. 4 Not Available [facility] ([facility]) [address] [facility], [place], [address], 08/24/2024 09:14:31 08/23/2008/24/2024 CBC WITH DIFFE RENTI AL/PL ATELE T baso (absolute) 0.1 x10e3 /uL 0.0-0. 2 Not Available [facility] ([facility]) [address] [place], [address], 08/24/2024 09:14:31 08/23/20 24 08/24/2024 CBC WITH DIFFE RENTI AL/PL ATELE T immature granulocytes 0 % notest ab. Not Available [facility] ([facility]) [address] [facility], [place], [address], 08/24/2024 09:14:31 08/23/20 24 08/24/2024 CBC WITH DIFFE RENTI AL/PL ATELE T immature grans (abs) 0.0 x10e3 /uL 0.0-0. 1 Not Available [facility] ([facility]) [address] [facility], [place], [address], 08/24/2024 09:14:31 09/08/20 24 09/09/2024 HEMOG LOBIN A1C hemoglobin A1C 6.0 % 4.8-5. 6 above high normal Predi abete s: 5.7 - 6.4 Diabe [place]: >6.4 Glyce sukhwinder contr ol for adult s with diabe [place]: <7.0 Not Available [facility] ([facility]) [address] [facility], [place], [address], 09/09/2024 07:15:50 10/09/20 23 10/09/2023 US, liver No observ ation record ed. [facility] [address] [place], [address], 02/14/2024 14:57:23 10/30/19 24 10/30/2023 LDCT, chest , for lung cance r scree nayana No observ ation record ed. [address] [place], [address], 02/14/2024 14:56:47 03/01/20 24 03/01/2024 US, liver No observ ation record ed. [facility] [address] [place], [address], 03/01/2024 13:50:44 11/03/19 25 10/29/2024 US, liver No observ ation record ed. [email or web address] [address] [facility] [place], [address], 11/03/2024 21:39:50 0212/02/2024 CT, cervi elba spine , w/o contr ast No observ ation record ed. [facility] [address], [place], [address], 12/03/2024 11:47:27 Result Notes None recorded. Problems Name Problem SNOMED Code Status Onset Date Resolution Date Notes Provider Name and Address Organization Details Recorded Time Hyperlipidemi a 52078339 Active 2023 Nazario Alonso MA null, [place] - [facility] 4 12:21:23 Liver function tests outside reference range 521043750 Active 2023 Nazario Alonso [place], [place] [facility] 4 12:21:24 Steatosis of liver 595484953 Active 2023 Chente Rivera MD Attn: Accounting ,[address] [facility], [place], [address] , [place] - [facility] 4 07:45:07 Smoker 46063378 Active 2023 Chente Rivera MD Attn: Accounting ,[address] [facility], [place], [address] , [place] [facility] 4 07:45:11 Prediabetes 651842443 Active 2023 Chente Rivera MD Attn: Accounting ,[address] [facility], [place], [address] , [place] - [facility] 4 20:39:00 Tobacco user 225116205 Active Not Available [facility] 4 04:30:25 Alcoholism 2435581 Active Not Available [facility] 4 04:30:25 Hyperglycemia 34565917 Active Not Available [facility] 4 04:30:25 Secondary hyperlipidemi a 270264721 Active Not Available [facility] 4 04:30:25 Cellulitis of trunk 23301766 Active Not Available [facility] 4 04:30:25 Problem Notes None recorded. Procedures Surgical History None recorded. Imaging Results Imaging Date Name Status LastModified by Organiz ation Details LastModified Time 10/09/2023 US, liver completed [address] [place], [address], 02/14/2024 14:57:23 10/30/2023 LDCT, chest, for lung cancer screening completed [address] [place], [address], 02/14/2024 14:56:47 03/01/2024 US, liver completed [facility] [address] [place], [address], 03/01/2024 13:50:44 10/29/2024 US, liver completed [address], [address], 11/03/2024 21:39:50 12/02/2024 CT, cervical spine, w/o contrast completed [facility] [address] [place], [address], 12/03/2024 11:47:27 Procedure Notes None recorded. Medical Equipment None Reported. Allergies No known drug allergies Medications Name Sig Start Date Stop Date Status Note LastModified by Organization Details LastModified Time Prescriptio n - Prior Authorizati on Request 02/12 completed Not Available Not Available Not Available prednisone 10 mg tablet 09/14 completed Not Available Not Available Not Available atorvastati n 10 mg tablet Take 1 tablet every day by oral route. active Not Available Not Available No t Available azithromyci n 250 mg tablet TAKE 2 TABLETS (500 MG) BY ORAL ROUTE ONCE DAILY FOR 1 DAY THEN 1 TABLET (250 MG) BY ORAL ROUTE ONCE DAILY FOR 4 DAYS after meal. 10/09 completed Not Available Not Available Not Available benzonatate 200 mg capsule Take 1 capsule 3 times a day by oral route as needed for 10 days. 02/12 completed Not Available Not Available Not Available metronidazo le 500 mg tablet TAKE ONE TABLET BY MOUTH THREE TIMES DAILY 02/12 completed Not Available Not Available Not Available sulfamethox azole 800 mg-trimetho prim 160 mg tablet Take 1 tablet every 12 hours by oral route after meals for 7 days. 03/04 completed Not Available Not Available Not Available meloxicam 7.5 mg tablet Take 1 tablet every day by oral route after meals for 30 days. 02/12 completed Not Available Not Available Not Available baclofen 10 mg tablet Take 1 tablet 3 times a day by oral route as directed for 30 days. 02/12 completed Not Available Not Available Not Available ranitidine 150 mg tablet 09/14 completed Not Available Not Available Not Available levofloxaci n 750 mg tablet TAKE ONE TABLET BY MOUTH EVERY DAY 08/07 completed Not Available Not Available Not Available albuterol sulfate HFA 90 mcg/actuati on aerosol inhaler INHALE 2 PUFFS BY MOUTH EVERY 4 HOURS DIRECTED FOR 30 DAYS. 2022 active Not Available Not Available Not Avai lable loratadine 10 mg tablet 09/14 completed Not Available Not Available Not Available Creon 3,000 unit-9,500 unit-15,000 unit capsule,del ayed release TAKE 1 CAPSULE BY MOUTH THREE TIMES DAILY WITH MEALS active Not Available Not Available No t Available Breo Ellipta 100 mcg-25 mcg/dose powder for inhalation Inhale 1 puff every day by inhalatio n route as directed for 30 days. 02/12 completed Not Available Not Available Not Available Vitals Date Recorded Body height Body mass index (BMI) Body weight Heart rate Oxygen saturation Oxygen saturation in Arterial blood by Pulse oximetry Systolic blood pressure Diastolic blood pressure Provider Name and Address Organization Details Last Updated DateTime 3 171.45 cm 22.5 kg/m2 78510.4 9 g 90 /min 98 % 98 % 142 mm[Hg] 80 mm[Hg] Selene Duong MA [place] - [facility] 3 12:48:15 Date Recorded Body height Body mass index (BMI) Body weight Heart rate Oxygen saturation Oxygen saturation in Arterial blood by Pulse oximetry Systolic blood pressure Diastolic blood pressure Provider Name and Address Organization Details Last Updated DateTime 3 171.45 cm 22.2 kg/m2 83651.3 g 86 /min 98 % 98 % 128 mm[Hg] 76 mm[Hg] Pebbles Newell MA [facility] 3 12:46:57 Date Recorded Body height Body mass index (BMI) Body weight Oxygen saturation Oxygen saturation in Arterial blood by Pulse oximetry Heart rate Systolic blood pressure Diastolic blood pressure Provider Name and Address Organization Details Last Updated DateTime 4 171.45 cm 22.2 kg/m2 19212.3 g 98 % 98 % 84 /min 130 mm[Hg] 80 mm[Hg] Penny Wall MA [facility] 4 12:00:55 Date Recorded Body height Body mass index (BMI) Body weight Heart rate Oxygen saturation Oxygen saturation in Arterial blood by Pulse oximetry Systolic blood pressure Diastolic blood pressure Provider Name and Address Organization Details Last Updated DateTime 4 171.45 cm 21.2 kg/m2 45508.6 7 g 94 /min 98 % 98 % 134 mm[Hg] 72 mm[Hg] Radha Alfred MA [facility] 4 14:18:53 Date Recorded Body height Body mass index (BMI) Body weight Heart rate Oxygen saturation Oxygen saturation in Arterial blood by Pulse oximetry Systolic blood pressure Diastolic blood pressure Provider Name and Address Organization Details Last Updated DateTime 4 171.45 cm 22.1 kg/m2 14136.0 7 g 77 /min 95 % 95 % 118 mm[Hg] 76 mm[Hg] Keren Belle MA [facility] 4 12:17:45 Social History Question Answer Notes LastModified by Organizat ion Details LastModified Time Tobacco Smoking Status Current Every Day Smoker ANÍBAL Luevano, [facility] 10/09/2022 11:45:10 What Is Your Level Of Alcohol Consumption? Heavy Information not available 10/09/2022 Are You Blind Or Do You Have Difficulty Seeing? No Information not available 08/07/2023 What Is Your Level Of Caffeine Consumption? Moderate Information not available 10/09/2022 In The 14 Days Before Symptom Onset, Have You Had Close Contact With A Laboratory-confir [facility] COVID-19 While That Case Was Ill? No Information not available 08/18/2024 In The 14 Days Before Symptom Onset, Have You Had Close Contact With A Person Who Is Under Investigation For COVID-19 While That Person Was Ill? No Information not available 08/18/2024 Have You Been To An Area Known To Be High Risk For COVID-19? No Information not available 08/18/2024 Are You Deaf Or Do You Have Serious Difficulty Hearing? No Information not available 08/07/2023 What Type Of Diet Are You Following? REGULAR Information not available 08/07/2023 Are There Any Guns Present In Your Home? No Information not available 08/07/2023 What Was The Date Of Your Most Recent Tobacco Screening? 08/18/2024 Information not available 08/18/2024 What Is Your Relationship Status? Single Information not available 08/07/2023 Do You Use Your Seat Belt Or Car Seat Routinely? Yes Information not available 08/07/2023 Do You Have Smoke And Carbon Monoxide Detectors In Your Home? Yes Information not available 08/07/2023 At What Age Did You Start Smoking Tobacco? 17 Information not available 10/09/2022 How Much Tobacco Do You Smoke? 2 PPD Information not available 10/09/2022 Do You Feel Stressed (tense, Restless, Nervous, Or Anxious, Or Unable To Sleep At Night)? [id number] Information not available 08/07/2023 Do You Use Any Illicit Or Recreational Drugs? Yes Marijuna Information not available 10/09/2022 Do You Use Sunscreen Routinely? No Information not available 08/07/2023 Has Tobacco Cessation Counseling Been Provided? Yes Information not available 10/09/2022 On What Date Was Tobacco Cessation Counseling Provided? 08/18/2024 Information not available 08/18/2024 Do You Or Have You Ever Used Any Other Forms Of Tobacco Or Nicotine? No Information not available 10/09/2022 Sex: Male Functional Status Question Answer Note LastModified by Organizat ion Details LastModified Time Are you able to care for yourself? Yes Information not available 08/07/2023 What is your exercise level? Occasional Information not available 08/07/2023 Mental Status None recorded. Family History Relationship Description Onset Age of this Age Resolved Age Notes LastModified by Organization Details LastModified Time Father Heart disease [email or web address] Not available 12/28 14:19:17 Medical History Condition Response Liver Disease Y Acid Reflux (GERD) Y High Cholesterol Y Past Encounters Encounter ID Performer Location Encounter Start Date Encounter Closed Date Diagnosis/Indication Diagnosis SNOMED-CT Code Diagnosis ICD10 Code Diagnosis Note [id number] Rica Portillo is [facility] (Adult Med) [address] [place] [address] [phone] 12/29/2015 13:56:13 12/29/2015 17:11:23 Adult health examination 854582936 Z00.00 Tobacco user 989580489 Z 72.0 Alcoholism 2309995 F10.2 0 [id number] Kimberley Gaspar [facility] (Adult Med) [address] [place] [address] [phone] 0 04/05/2016 16:16:53 04/09/2016 09:38:21 Hyperglycemia 63751851 R73.9 Secondary hyperlipidemia 118531690 E78.5 History of alcoholism 16 9339391 F10.21 Cellulitis of trunk 4687 6003 L03.791 [id number] [facility] [address] [place] [address] [phone] 0 03/04/2018 15:50:12 03/04/2018 16:49:37 Chronic obstructive pulmonary disease 55085772 J44.9 Nicotine dependence 5629 4008 F17.200 Chest pain 60544166 R07. 9 Advised patient to go to ER any time for any concern, localized left chest pain on and off last 2 months when he is stressed out at work. [id number] MD Nany Lew (Adult Med) [address] [place] [address] [phone] 0 05/06/2018 15:54:20 05/06/2018 16:40:18 Chronic obstructive pulmonary disease 52885472 J44.9 [address] store said that they got the orders for his breo and ventolin inhalers will provide as ordered. Nicotine dependence 5629 4008 F17.422 [id number] MD Nany Lew (Adult Med) [address] [place] [address] [phone] 0 09/14/2019 16:25:32 09/15/2019 10:58:19 Pain of right shoulder joint 3556243569 1532419 M25.511 Type error. Pain of le ft shoulder joint 0132351788 4932293 M25.512 Discussed with patient he agreed with the orders. [id number] MD Nany Lew (Adult Med) [address] [place] [address] [id number] 0 01/04/2022 09:32:10 01/07/2022 09:06:18 Acute respiratory infections 993671708 J22 Advised not to smokes cigarettes , he agreed. Smoker 76292514 Z53.01 Will do LDCT after tomorrow , his day , will be 52 Y/O. Chronic ob structive pulmonary disease 63809177 J44.9 Drug store said that they got the orders for his breo and ventolin inhalers will provide as ordered. [id number] [facility] [address] [place] [address] [phone] 10/09/2022 11:13:26 10/10/2022 11:18:03 HIV screening 108827206 Z11.4 He agreed today 10-09-2022 . Smoker 39977913 F17.200 Will do LDCT after tomorrow , his day , will be 52 Y/O.smokes 1and half pk/day since age of 17. 40 pk- year smoker. Administra tion of diphtheria, pertussis, and tetanus vaccine 400251550 Z23 He refused today [id number] . Influenza vaccination declined 987249888 Z28.21 he refused today 10-09-2022 . 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 Screening for malignant neoplasm of colon 919838247 Z12.11 He agreed for the screening. Will refer. 10-09-2022 . [id number] MD Nany Lew (Adult Med) [address] [place] [address] [phone] 0 02/05/2023 12:14:10 02/06/2023 15:04:38 Tobacco user 073399638 Z72.0 Advised him to quit smoking. He is aware of cigarettes can cause lung , throat, and oral cancer, also emphysema and other health re-lated disease. Smoker 68108907 F17.200 Will do LDCT after tomorrow , his day , will be 52 Y/O.smokes 1and half pk/day since age of 17. 40 pk- year smoker. Chronic ob structive pulmonary disease 10359474 J449 [facility] said that they got the orders for his breo and ventolin inhalers will provide as ordered. No difficulty of breathing. Colon canc er screening declined 7478400721 9109 Z53.20 He declined today 02-05-23. [id number] MD Nany Lew (Adult Med) [address] [place] [address] [phone] 0 08/07/2023 12:21:47 08/11/2023 14:54:02 Smoker 14683463 F17.200 Will do LDCT after tomorrow , his day , will be 52 Y/O.smokes 1and half pk/day since age of 17. 40 pk- year smoker. He is aware of cigarettes smoking can cause permanent emphysema, cancer of lung, or throat, ot mouth and other diseases. Chronic ob structive pulmonary disease 65885124 J44.9 Drug store said that they got the orders for his breo and ventolin inhalers will provide as ordered. No difficulty of breathing. Renewal of prescription 130571075 Z76.0 [id number] MD Nany Diez (Adult Med) [address] [place] [address] [phone] 0 02/13/2024 11:18:47 02/13/2024 12:20:52 Hyperlipidemia 75449206 E78.5 Liver func tion tests outside reference range 780885683 R94.5 Screening for malignant neoplasm of colon 377031909 Z12.11 Screening for malignant neoplasm of prostate 517782462 Z12.5 [id number] MD Nany Diez (Adult Med) [address] [place] [address] [phone] 0 05/12/2024 13:52:04 05/12/2024 15:12:14 Smoker 31645225 F17.200 Hepatomegaly 52381838 R1 6.0 Hyperlipidemia 77572142 E78.5 Tobacco user 301674456 Z 72.0 Steatosis of liver 1007 K76.0 [id number] [facility] [address] [place] [phone] 08/18/2024 12:00:43 08/18/2024 13:24:27 Hyperlipidemia 12958434 E78.5 Steatosis of liver 1007 K76.0 Exocrine p ancreatic insufficiency 66225903 K86.81 Health Concerns Section Related Observation LastModified by Organization Detai ls LastModified Time None Recorded Concern Status LastModified by Organization Details LastModified Time None Recorded Advance Directives Directive None Recorded Payers Encounter Date Sequence Insurance Name Policy Number Policy Byrd Covered Member ID Byrd Member ID Guarantor Name 02/05/2023 1 [facility] ON OR AFTER 04/26/21 (MEDICAID REPLACEMENT - HMO) [facility] [id number] [facility] 08/07/2023 1 [facility] ON OR AFTER 04/26/21 (MEDICAID REPLACEMENT - HMO) [facility] [id number] [facility] 02/13/2024 1 [facility] ON OR AFTER 04/26/21 (MEDICAID REPLACEMENT - HMO) [facility] [id number] [facility] 05/12/2024 1 [facility] ON OR AFTER 04/26/21 (MEDICAID REPLACEMENT - HMO) [facility] [id number] [facility] 08/18/2024 1 [facility] ON OR AFTER 04/26/21 (MEDICAID REPLACEMENT - HMO) [facility] [id number] [facility] Notes Date Note Type Note Provider Name and Address Organization Details Recorded Time 02/05/2023 text/html Office visit, STEFANY SCHWARTZ. no complaints or issue, no need for med refill. Ivette Bland MD Attn: Accounting,[address] [place], [address], [facility] 02/05/2023 13:44:51 08/07/2023 text/html Office visit, STEFANY SCHWARTZ. smoker, check up and refills of inhalers. No chest pain, no difficulty of breathing. Ivette Bland MD Attn: Accounting, [address] [facility], [place], [address], [place] - [facility] 08/07/2023 14:34:29 02/13/2024 text/html 54-year-old 2 pa ck a day smoker hyperlipidemia has not been treated and increased LFTs who comes in still drinks 12 beers a day smokes 2 packs of cigarettes a day Chente Rivera MD Attn: Accounting, [address] [facility], [place], [address], [place] [facility] 02/14/2024 14:59:43 05/12/2024 text/html follow up of med ical problems continues to smoke a pack of cigarettes a day and drinks 12-15 beers a day. It sounds like he has been referred to [facility] but nobody has made contact with him according to the patient Chente Rivera MD Attn: Accounting, [address] [facility], [place], [address], [place] - [facility] 05/13/2024 07:45:30 08/18/2024 text/html not feeling too terribly bad he has an appointment with a mems process engineer on 10/29/2024. He is not really losing any weight Chente Rivera MD Attn: Accounting, [address] [facility], [place], [address], [place] - [facility] 09/07/2024 21:35:41
--- OUTSIDE RECORDS SUMMARY | 2024-12-14 14:40 | XMS_ITS | Clinical Summary ---
Author Organization [facility] Address [address] [place] [address] Care Team Providers Care Assistant Brand Manager Name Role Phone Justino Rivera MD Primary Care Provider [phone] Source Comments [facility],non-owned Affiliates and Associated Physician Practices is amultiple site organization consisting of ambulatory clinics and hospital sitesin [place], [place], [place] and [place]. This disclosure is being madepursuant to the Care Everywhere program and may not contain all information available regarding this patient. Last updated 18.[facility] Allergies No known active allergies Medications * Be aware that medications may not be up to date on this document. Alwaysverify current medications with the patient. Medication Sig Dispensed Refills Start Date End Date Status albuterol HFA (Proventil; Ventolin; Proair) 108 (90 Base) MCG/ACT inhaler Inhale 2 (two) puffs by mouth every 6 hours as needed for Shortness of Breath, Wheezing or Cough 09/04/2023 Active Active Problems Problem Noted Date Diagnosed Date Alcoholism 10/29/2024 Hyperglycemia 10/29/2024 Prediabetes 09/12/2024 Tobacco user 05/13/2024 Steatosis of liver 05/13/2024 Overview (10/29/2024): Fibroscan 10/29/24 CAP 201 LSM kPa 5.5 Abnormal liver function tests 02/13/2024 Secondary hyperlipidemia 02/13/2024 Encounters Date Type Department Care Team Description 11/17/2024 Telephone [facility] - [address] [address] Ne Chavez, RN General (Call back) 10/29/2024 11:40 AM AIR AND MIS[employer]LE DEFENSE CREWMEMBER - 10/29/2024 11:59 PM AIR AND MIS[employer]LE DEFENSE CREWMEMBER Hospital Encounter [facility] [address] [place] [address] Discharge Disposition: Home or Self Care 10/29/2024 10:30 AM [employer] AND M[employer]LE DEFENSE CREWMEMBER Office Visit [facility] [address] [phone] Ivonne Cedeño, TEACHER ADVISOR-WASH OIL PUMP OPERATOR Abnormal liver function tests (Primary Dx) 10/29/2024 10:00 AM [employer] DEFENSE CREWMEMBER Procedure visit [facility] [address] [phone] Unknown, Provider Fatty liver 10/29/2024 Travel 10/21/2024 Telephone [facility] [address] [phone] Ne Chavez, RN Appointment from Last 3 Months Family History Medical History Relation Name Comments Cirrhosis Brother liver transplan t in 2016 Diabetes - Type 2 Mother Hypertension Mother Thyroid Disease Mother Relation Name Status Comments Brother Father Mother Alive Social History Tobacco Use Types Packs/Day Years Used Date Smoking Tobacco: Every Day Cigarettes 1 30.1 Started: 10/29/1994 Smokeless Tobacco: Never Tobacco Cessation:Ready to Q uit: Not Asked; Counseling Given: Not Answered Alcohol Use Standard Drinks/Week Comments Yes 0 (1 standard drink = 0.6 oz pure alcohol) previously daily beer and liquor- no whiskey in over 2 years- currently a few times/week with beer Sex and Gender Information Value Date Recorded Sex Assigned at Not on file Gender Identity Not on file Sexual Orientation Not on file Last Filed Vital Signs Vital Sign Reading Time Taken Comments Blood Pressure 127/93 10/29/2024 10:13 AM [employer] DEFENSE CREWMEMBER Pulse 89 10/29/2024 10:13 AM AIR AND MIS[employer]LE DEFENSE CREWMEMBER Temperature 37 C (98.6 F) 10/29/2024 10:13 AM AIR AND MIS[employer]LE DEFENSE CREWMEMBER Respiratory Rate - - Oxygen Saturation 99% 10/29/2024 10:13 AM [employer] AND MIS[employer]LE DEFENSE CREWMEMBER Inhaled Oxygen Concentration - - Weight 66.2 kg (146 lb) 10/29/2024 10:13 AM [employer] AND MIS[employer]LE DEFENSE CREWMEMBER Height 170.2 cm (5' 7 ) 10/29/2024 10:13 AM AIR AND MISSILE DEFENSE CREWMEMBER Body Mass Index 22.87 10/29/2024 10:13 AM AIR AND MIS[employer]LE DEFENSE CREWMEMBER Plan of Treatment Upcoming Encounters Date Type Department Care Team (Late st Contact Info) Description 05/06/2025 10:00 AM CDT Procedure visit [facility] [address] [place] [phone] 05/06/2025 10:30 AM CDT Office Visit [facility] [address] [facility], [place] [phone] Ivonne Cedeño, TEACHER ADVISOR-[address] [phone] Health Maintenance Due Date Last Done Comments COLOGUARD (AGES 45-75) - COL ON CA SCREENING 1972 COLON MONITORING 1972 COLONOSCOPY - COLON CA SCREENING 1972 CT COLONOGRAPHY - COLON CA SCREENING 1972 Colorectal Cancer Screening 1972 FIT - COLON CA SCREENING 1972 FLEX SIG - COLON CA SCREENING 1972 LIPID TESTING 1972 HIV SCREENING 01/05/1987 HEPATITIS C SCREENING 01/01/1990 DTAP/TDAP/TD VACCINES (1 - Tdap) 01/05/1991 HEPATITIS B VACCINE (1 of 3 - 19+ 3-dose series) 01/05/1991 PNEUMOCOCCAL VACCINE 50+ (1 of 2 - PCV) 01/05/1991 LUNG CANCER SCREENING 01/05/2022 ZOSTER VACCINE (1 of 2) 01/05/2022 COVID-19 VACCINE ( - 2023-2 5 season) 2024 INFLUENZA VACCINE (#1) 2024 DEPRESSION SCREENING 10/27/2024 HIB VACCINE Aged Out No longer eligi ble based on patient's age to complete this topic HPV VACCINE Aged Out No longer eligi ble based on patient's age to complete this topic MENINGOCOCCAL (Group B) VACCINE Aged Out No longer eligible based on patient's age to complete this topic MENINGOCOCCAL VACCINE Aged Out No glenna babita eligible based on patient's age to complete this topic Goals Goal Patient Goal Type Associated Problems Recent Progress Patient-Stated? Author Medication Management General On track( 025 10:18 AM [employer] CREWMEMBER) Pebbles Paulino, RN Note: Expected end date: ongoing Interventions: Take all medications as prescribed Let your doctor know right away about any changes in your medications Make sure to request a refill of your medication at least one week prior to your last dose Procedures Procedure Name Priority Date/Time Associated Diagnosis Comments HEMOCHROMATOSIS MUTATION PANEL Routine 10/29/2024 12:19 PM [employer] CREWMEMBER Abnormal liver function tests [id number] BLOOD PHENOTYPING PANEL Routine 10/29/2024 12:19 PM [employer] AND [employer] DEFENSE CREWMEMBER Abnormal liver function tests MITOCHONDRIAL ANTIBODY SCREEN Routine 10/29/2024 12:19 PM [employer] AND [employer] DEFENSE CREWMEMBER Abnormal liver function tests FERRITIN Routine 10/29/2024 12:19 PM [employer] AND MIS[employer]LE DEFENSE CREWMEMBER Abnormal liver function tests PT-INR [facility] Routine 10/29/2024 12:19 PM [employer] AND MIS[employer]LE DEFENSE CREWMEMBER Abnormal liver function tests COMPREHENSIVE METABOLIC PANEL Routine 10/29/2024 12:19 PM [employer] AND [employer]LE DEFENSE CREWMEMBER Abnormal liver function tests CBC W AUTO DIFFERENTIAL Routine 10/29/19 25 12:19 PM [employer] AND [employer] DEFENSE CREWMEMBER Abnormal liver function tests SMOOTH MUSCLE ANTIBODY W REFLEX TITER Routine 10/29/2024 12:19 PM [employer] AND [employer]IS[employer]LE DEFENSE CREWMEMBER Abnormal liver function tests VT LIVER ELASTOGRAPHY Routine 10/29/2024 9:51 AM [employer] DEFENSE CREWMEMBER Fatty liver from Last 3 Months Results * (ABNORMAL) PT-INR [facility] (10/29/2024 12:19 PM AIR AND MIS[employer]LE DEFENSE CREWMEMBER) PT 11.9(L) 12.1 - 14.8 Seconds 10/29/2024 1:31 PM AIR AND MISSILE DEFENSE CREWMEMBER [facility] INR 0.9 See Comment 10/29/2024 1:31 PM AIR AND MISSILE DEFENSE CREWMEMBER [facility] Comment:The suggested therap eutic range for standard coumadin (warfarin) therapy is an INR of 2.0-3.0. For high-risk patients (Mechanical Mitral Valve Prosthesis, etc.), the suggested prophylactic therapeutic range is an INR of 2.5-3.5. Blood BLOOD SPECIMEN / Unknown Lab Venipuncture / Unknown 10/29/2024 12:19 PM AIR AND MIS[employer]LE DEFENSE CREWMEMBER 10/29/2024 12:39 PM AIR AND MIS[employer]LE DEFENSE CREWMEMBER Ivonne Cedeño TEACHER ADVISOR-WASH OIL PUMP OPERATOR LAB - COAGUL ATION ORDERABLES [facility] [address] [place] [phone], [facility] [phone] * SMOOTH MUSCLE ANTIBODY W REFLEX TITER (10/29/2024 12:19 PM AIR AND MIS[employer]LE DEFENSE CREWMEMBER) F-Actin Antibody IgG 9 0 - 19 Units 10/30/2024 11:14 PM AIR AND MISSILE DEFENSE CREWMEMBER [employer] ([facility]) Comment: If F-Actin (Smooth Muscle) Antibody, IgG is negative, the Smooth Muscle Antibody titer by IFA is not performed. REFERENCE INTERVAL: F-Actin (Smooth Muscle) Antibody, IgG by VERONIKA 19 Units or less ....... Negative 20 - 30 Units .......... Weak Positive-Suggest repeat testing in two to three weeks with fresh specimen. 31 Units or greater..... Positive-Suggestive of autoimmune hepatitis type 1 or chronic active hepatitis. F-actin IgG antibodies have been shown to have increased sensitivity for autoimmune hepatitis (AIH) but lower specificity than smooth muscle antibodies (SMA). F-actin IgG antibodies can also be seen in SMA-negative disease controls (non-AIH), especially in patients with primary biliary cirrhosis and chronic hepatitis C infections. Some patients with AIH may be SMA-positive but negative for F-actin IgG. Consider testing for SMA by IFA if suspicion for AIH is strong. Performed By: [employer] [address] [place] [id number] New Vehicle Sales Consultant: Melvin Ibarra MD, PhD CLIA Number: [id number] Blood BLOOD SPECIMEN / Unknown Lab Venipuncture / Unknown 10/29/2024 12:19 PM [employer] AND [employer] DEFENSE CREWMEMBER 10/29/2024 12:39 PM [employer] AND [employer] DEFENSE CREWMEMBER Ivonne Cedeño APRN-WASH OIL PUMP OPERATOR LAB - SEROLO GY ORDERABLES Performing Organization Address City/[facility]/ZIP Co de Phone Number [facility]) [address] * (ABNORMAL) MITOCHONDRIAL ANTIBODY SCREEN (10/29/2024 12:19 PM [employer] AND MIS[employer]LE DEFENSE CREWMEMBER) Mitochondrial M2 Antibody 33.1(H) 0.0 - 24.9 Units 10/30/2024 11:14 PM AIR AND MISSILE DEFENSE CREWMEMBER [facility] ([facility]) Comment: REFERENCE INTERVAL: Mitochondrial (M2) Antibody, IgG 20.0 Units or less ......... Negative 20.1 - 24.9 Units........... Equivocal 25.0 Units or greater....... Positive Anti-mitochondrial antibodies (AMA) are thought to be present in 90-95% of patients with primary biliary cholangitis (PBC). However, the frequency of detected antibodies may be cohort or assay dependent, as lower sensitivities have been reported. Not all PBC patients are positive for AMA; some patients may be positive for SP100 and/or GP210 antibodies. A negative result does not rule out PBC. Performed By: [employer] [address] [place] [address] New Vehicle Sales Consultant: Melvin Ibarra MD, PhD CLIA Number: [id number] Blood BLOOD SPECIMEN / Unknown Lab Venipuncture / Unknown 10/29/2024 12:19 PM AIR AND MISSILE DEFENSE CREWMEMBER 10/29/2024 12:39 PM AIR AND MISSILE DEFENSE CREWMEMBER Ivonne HENDERSON LAB - CHEMIS TRY ORDERABLES [facility]) [address] * [id number] BLOOD PHENOTYPING PANEL (10/29/2024 12:19 PM AIR AND MISSILE DEFENSE CREWMEMBER) Uknvg-0-Putkpagkkp n Phenotype MM 11/01/2024 5:52 PM AIR AND MISSILE DEFENSE CREWMEMBER [facility] [employer] ([facility]) Comment: The patient appears to have a normal phenotype. All M alleles (including subtypes M1, M2, and M3) produce normal serum concentrations of csdag-6-ryumxhwi inhibitor and are not associated with clinical disease. Caution in interpretation is advised if the patient has been transfused within the previous 21 days. Performed By: [employer] [address] [place] [address] New Vehicle Sales Consultant: Melvin Ibarra MD, PhD CLIA Number: [id number] Urqsh-4-Qgtbcgiiew n 170 90 - 200 mg/dL 11/01/2024 5:52 PM AIR AND MISSILE DEFENSE CREWMEMBER [facility] [employer] ([facility]) Comment:To convert to umol/L , multiply mg/dL by 0.185 Blood BLOOD SPECIMEN / Unknown Lab Venipuncture / Unknown 10/29/2024 12:19 PM AIR AND MISSILE DEFENSE CREWMEMBER 10/29/2024 12:39 PM AIR AND MISSILE DEFENSE CREWMEMBER Ivonne Cedeño TEACHER ADVISOR-WASH OIL PUMP OPERATOR LAB - CHEMIS TRY ORDERABLES Performing Organization Address City/State/[facility] Co de Phone Number [facility] [employer] ([facility]) [address] [place] [address] * HEMOCHROMATOSIS MUTATION PANEL (10/29/2024 12:19 PM AIR AND MISSILE DEFENSE CREWMEMBER) HFE C282Y Mutation Negative 2024 7:15 AM AIR AND MISSILE DEFENSE CREWMEMBER [employer] [facility]) HFE Specimen Source Whole Blood 11/02/2024 7:15 AM AIR AND MISSILE DEFENSE CREWMEMBER [employer] ([facility]) HFE H63D Mutation Heterozygous 11/02 7:15 AM AIR AND MISSILE DEFENSE CREWMEMBER [employer] [facility]) HFE S65C Mutation Negative 025 7:15 AM AIR AND MISSILE DEFENSE CREWMEMBER [facility] [employer] [facility]) Interpretation HFE Mutation See Note 11/02/2024 7:15 AM AIR AND MISSILE DEFENSE CREWMEMBER [facility] [employer] ([facility]) Comment: Indication for testing: Carrier screening or diagnostic testing for hereditary hemochromatosis. Hemochromatosis Interpretive Results: Heterozygous H63D: C282Y: Negative - The patient is negative for the HFE C282Y mutation. 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 S65C: Negative - The patient is negative for the HFE S65C mutation. This genotype has not been associated with symptoms of hereditary hemochromatosis. This result has been reviewed and approved by Mauri Jaramillo, Ph.D. BACKGROUND INFORMATION: Hemochromatosis (HFE) 3 Mutations CHARACTERISTICS: Disorder of iron metabolism resulting in excessive iron storage leading to increased skin pigmentation, arthritis, hypogonadism, diabetes mellitus, heart arrhythmias/failure, cirrhosis and liver carcinoma. INCIDENCE: One in 300 individuals of [place] descent; unknown in other ethnicities. INHERITANCE: Autosomal recessive. PENETRANCE: 5 percent of C282Y homozygotes, 1 percent of C282Y/H63D compound heterozygotes and rare H63D homozygotes develop clinical symptoms. CAUSE: Two pathogenic HFE gene mutations on opposite chromosomes. MUTATIONS TESTED: p.C282Y (c.845G>A), p.H63D (c.187C>G), and p.S65C (c.193A>T). CLINICAL SENSITIVITY: 85 percent of hereditary hemochromatosis in Northern Europeans is caused by C282Y homozygosity and 5 percent by C282Y/H63D compound heterozygosity. METHODOLOGY: PCR and fluorescence monitoring. ANALYTICAL SENSITIVTY AND SPECIFICITY: 99 percent. LIMITATIONS: HFE mutations, other than those targeted, will not be detected. Diagnostic errors can occur due to rare sequence variations. This test was developed and its performance characteristics determined by [employer]. It has not been cleared or approved by the US Food and Drug Administration. This test was performed in a CLIA certified laboratory and is intended for clinical purposes. Counseling and informed consent are recommended for genetic testing. Consent forms are available online. Performed By: [employer] [address] [place] [address] New Vehicle Sales Consultant: Melvin Ibarra MD, PhD CLIA Number: [id number] Blood BLOOD SPECIMEN / Unknown Lab Venipuncture / Unknown 10/29/2024 12:19 PM AIR AND MISSILE DEFENSE CREWMEMBER 10/29/2024 12:48 PM AIR AND MISSILE DEFENSE CREWMEMBER Ivonne Cedeño TEACHER ADVISOR-WASH OIL PUMP OPERATOR LAB - CHEMIS TRY ORDERABLES [employer] ([facility]) [address] [place] [address], [facility] * (ABNORMAL) CBC WITH DIFFERENTIAL (10/29/2024 12:19 PM AIR AND MISSILE DEFENSE CREWMEMBER) Pathologist [facility] WBC 5.4 4.0 - 10.7 x10E9/L 10/29/2024 12:57 PM [facility] RBC Count 5.46 4.30 - 5.80 x10E12/L 10/29/2024 12:57 PM [facility] Hemoglobin 17.7(H) 13.3 - 17.5 g/dL 10/29/2024 12:57 PM [facility] Hematocrit 50.4 38.7 - 51.1 % 10/29/2024 12:57 PM [facility] MCV 92.3 80.0 - 98.0 fL 10/29/2024 12:57 PM [facility] MCH 32.4 26.7 - 33.6 pg 10/29/2024 12:57 PM [facility] MCHC 35.1 31.7 - 36.3 g/dL 10/29/2024 12:57 PM [facility] RDW-CV 12.6 11.3 - 14.8 % 10/29/2024 12:57 PM [facility] Platelet Count 239 150 - 420 x10E9/L 10/29/2024 12:57 PM [facility] MPV 9.1 7.8 - 11.4 fL 10/29/2024 12:57 PM [facility] Neutrophil % 52.1 41.0 - 74.0 % 10/29/2024 12:57 PM [facility] Lymphocyte % 36.5 17.0 - 47.0 % 10/29/2024 12:57 PM [facility] Monocyte % 8.3 3.0 - 11.0 % 10/29/2024 12:57 PM [facility] Eosinophil % 2.0 0.0 - 7.0 % 10/29/2024 12:57 PM [facility] Basophil % 0.7 0.0 - 1.6 % 10/29/2024 12:57 PM [facility] Immature Granulocytes % 0.4 0.0 - 1.0 % 10/29/2024 12:57 PM [facility] Neutrophil Absolute 2.82 1.60 - 7.50 x10E9/L 10/29/2024 12:57 PM [facility] Lymphocyte Absolute 1.98 1.00 - 4.40 x10E9/L 10/29/2024 12:57 PM [facility] Monocyte Absolute 0.45 0.15 - 1.00 x10E9/L 10/29/2024 12:57 PM [facility] Eosinophil Absolute 0.11 0.00 - 0.60 x10E9/L 10/29/2024 12:57 PM [facility] Basophil Absolute 0.04 0.00 - 0.13 x10E9/L 10/29/2024 12:57 PM [facility] Blood BLOOD SPECIMEN / Unknown Lab Venipuncture / Unknown 10/29/2024 12:19 PM AIR AND MIS[employer]LE DEFENSE CREWMEMBER 10/29/2024 12:48 PM [facility] Ivonne Cedeño TEACHER ADVISOR-WASH OIL PUMP OPERATOR LAB - HEMATO LOGY ORDERABLES [facility] [address] [place] [address], [facility] [phone] * (ABNORMAL) COMPREHENSIVE METABOLIC PANEL (10/29/2024 12:19 PM [facility]) BUN 15 7 - 26 mg/dL 10/29/2024 1:02 PM [facility] Creatinine 0.96 0.71 - 1.16 mg/dL 10/29/2024 1:02 PM [facility] Sodium 137 136 - 145 mmol/L 10/29/2024 1:02 PM [facility] Potassium 4.8(H) 3.5 - 4.5 mmol/L 10/29/2024 1:02 PM [facility] Chloride 105 98 - 107 mmol/L 10/29/2024 1:02 PM [facility] CO2 22 22 - 29 mmol/L 10/29/2024 1:02 PM [facility] Glucose 86 70 - 99 mg/dL 10/29/2024 1:02 PM [facility] Calcium 9.6 8.4 - 10.2 mg/dL 10/29/2024 1:02 PM [facility] Protein Total 8.2 6.0 - 8.3 g/dL 10/29/2024 1:02 PM [facility] Albumin 4.8 3.4 - 5.0 g/dL 10/29/2024 1:02 PM [facility] Bilirubin Total 0.3 0.2 - 1.2 mg/dL 10/29/2024 1:02 PM [facility] Alkaline Phosphatase 81 40 - 150 U/L 10/29/2024 1:02 PM [facility] ALT 51 5 - 55 U/L 10/29/2024 1:02 PM [facility] AST 34 5 - 34 U/L 10/29/2024 1:02 PM [facility] Anion Gap 10 6 - 16 10/29/2024 1:02 PM [facility] BUN/Creatinine Ratio 16 7 - 23 10/29/2024 1:02 PM [facility] Osmolality Calculated 284 275 - 295 mOsm/kg 10/29/2024 1:02 PM [facility] Albumin/Globulin Ratio 1.4 1.1 - 2.3 10/29/2024 1:02 PM [facility] eGFR by CKD-EPI >90 >=90 mL/min/1.7 3 m2 10/29/2024 1:02 PM [facility] Blood BLOOD SPECIMEN / Unknown Lab Venipuncture / Unknown 10/29/2024 12:19 PM [employer] DEFENSE CREWMEMBER 10/29/2024 12:40 PM [employer]IS[employer]LE DEFENSE CREWMEMBER Ivonne Cedeño APRN-WASH OIL PUMP OPERATOR LAB - CHEMIS TRY ORDERABLES [address] [address], [facility] [phone] * (ABNORMAL) FERRITIN (10/29/2024 12:19 PM AIR AND MISSILE DEFENSE CREWMEMBER) Ferritin 359(H) 22 - 275 ng/mL 10/29/2024 1:21 PM [facility] Blood BLOOD SPECIMEN / Unknown Lab Venipuncture / Unknown 10/29/2024 12:19 PM [employer] AND MISSILE DEFENSE CREWMEMBER 10/29/2024 12:39 PM [employer] M[employer] DEFENSE CREWMEMBER Ivonne Cedeño TEACHER ADVISOR-WASH OIL PUMP OPERATOR LAB - CHEMIS TRY ORDERABLES [address] [address], [facility] [phone] * [place] LIVER ELASTOGRAPHY (10/29/2024 9:51 AM AIR AND MISSILE DEFENSE CREWMEMBER) Narrative Augustine Cordero MD - 10/29/2024 9:51 AM [employer] AND MISSILE DEFENSE CREWMEMBER Augustine Cordero MD 10/29/2024 4:22 PM Diagnosis: Fatty liver RN verified patient is NPO for prior 3 hours. Procedure explained. Date of Exam: 10/29/2024 Liver Stiffness: (LSM, kPa) median: 5.5 IQR/Median% (ideally < 30%): 11% CAP (controlled attenuation parameter): 201 Technical Difficulty: None Ordering Provider: BEATRIZ Olvera Phone Fax Fibroscan interpretation: I have personally reviewed the Fibroscan report and associated tracings. The calculated Liver Stiffness Measurement (LSM, kPa) indicates that: The probability of advanced liver fibrosis is: low. The loss of ultrasound signal, (controlled attenuation parameter, CAP [dB/m]), indicates that the probability of hepatic steatosis is: low. Augustine Sauceda MD The following criteria are used to indicate the probability of advanced (stage 3-4) fibrosis: < 7.0 kPa: low 7.0-8.9 kPa: low to moderate 9.0-14.9 kPa: moderate 15-20 kPa: high > 20 kPa: very high Liver stiffness > 20 kPa is also associated with a high probability of complications of portal hypertension including varices and ascites. Liver stiffness > 50 kPa is associated with a high risk of variceal bleeding. These interpretations are based on the following published data: Syed PJ, Marj M, Nickie M, et al. Accuracy of FibroScan controlled attenuation parameter and liver stiffness measurement in assessing steatosis and fibrosis in patients with nonalcoholic fatty liver disease. Gastroenterology 2019;156:1416-3499. Bridger MS, Jared R, Van Az ML, et al. Vibration-controlled transient elastography to assess fibrosis and steatosis in patients with nonalcoholic fatty liver disease. Clin Gastroenterol Hepatol 2019;17:156-163. Note that scores have been developed that incorporate the Fibroscan liver stiffness measurement from large cohorts of patients with liver biopsies to further refine the ability of Fibroscan to identify patients with MASH and advanced fibrosis. These include the FAST (Fibroscan-AST) score (Maggie, 2021) and the Agile3+ and Agile4 scores (Karan, 202). Maggie TA, Ty Bernardo ML, Judy M, Fernandez A, et al. Validation of the accuracy of the FAST score for detecting patients with at-risk nonalcoholic steatohepatitis (RICHARDSON) in a [place] cohort and comparison to other non-invasive algorithms. PLoS ONE (2021) 17: [id number]. Karan AJ, Bobbi J, Shaun ZM, et al. Enhanced diagnosis of advanced fibrosis and cirrhosis in individuals with NAFLD using FibroScan-based Agile scores. J Hepatol (2022) 78: 247-259. Fibroscan LSM can also be used with laboratory parameters without formulas to assess prognosis. According to the Baveno-VII criteria (Clark, 202), Fibroscan LSM <=15 kPa plus a platelet count of >=138i490/L rules out clinically significant portal hypertension (sensitivity and negative predictive value >90%) in patients with compensated advanced chronic liver disease. de Roselyn R, Hong J, Harinder-Eliane G, Rejona T, Benigno C on behalf of the Baveno VII Faculty. Baveno VII--Renewing consensus in portal hypertension. J Hepatol (2021) 76: 959-974 Assessing the likelihood of advanced fibrosis in patients with intermediate liver stiffness measurement (LSM) by Fibroscan (e.g., 8-15 kPa) can be improved by also calculating the FIB-4 score (Rasheedyduke et al. Hepatology Communications 2019;3:4562-4931) or NAFLD Fibrosis score (Conte et al. Clinical Gastroenterology and Hepatology 2019;17:5462-7619 using routine clinical data. Note: 1. Fibroscan cannot reliably identify earlier stages of fibrosis (ie distinguish F0 from F1 and F2) and thus a histologic stage cannot be predicted from the Fibroscan reading. 2. Liver stiffness can be increased by factors other than fibrosis including passive congestion, infiltrative processes, active alcoholism, recent moderate alcohol consumption in the 2 weeks before the exam, biliary obstruction and marked inflammation. The interpretation of the Fibroscan result provided above may not have taken such clinical factors into account. Disease etiology also influences Fibroscan cutoff values for fibrosis stages and the following cutoffs have been proposed (Rosa et al, Clin Gastro Hepatol 2015; 13:27-36): Cutoffs for Stage 3 and Stage 4 fibrosis respectively: Hepatitis B: >9 and >11.7 kPa Hepatitis C: >9.5 and >12.5 kPa HCV-HIV: >11 and >14 kPa Cholestatic liver diseases: >10 and >17.9 kPa MASLD/MASH: >10 and >14 kPa CAP estimates of steatosis: normal <200 dB/m mild 200 to 250 dB/m moderate 250-290 dB/m substantial > 290 dB/m (Note that Fibroscan is not a quantitative measure of liver fat.) These criteria are estimates and may change as additional supporting data becomes available. (This additional interpretive data was last updated 03/01/23.) [email or web address] Ivonne Cedeño TEACHER ADVISOR-WASH OIL PUMP OPERATOR PROCEDURE/[place] NOR SURGICAL ORDERABLES from Last 3 Months Care Teams Assistant Brand Manager Relationship Specialty Start Date End Date Justino Rivera MD [address] [place] [address] PCP - General Family Medicine 10/29/24
--- OUTSIDE RECORDS SUMMARY | 2024-12-14 14:40 | XMS_ITS | Patient Health Summary ---
Author Organization [facility] [employer] Address [address] [place] [address] Care Team Providers Care Handbag Operator Name Role Phone Justino Rivera MD Primary Care Provider [phone] Note from [facility],non-owned Affiliates and Associated Physician Practices is amultiple site organization consisting of ambulatory clinics and hospital sitesin [place], [place], [place] and [place]. This disclosure is being madepursuant to the Care Everywhere program and may not contain all information available regarding this patient. Last updated 18.[facility] [employer] Allergies No known active allergies Medications * Be aware that medications may not be up to date on this document. Alwaysverify current medications with the patient. * albuterol HFA (Proventil; Ventolin; Proair) 108 (90 Base) MCG/ACT inhaler (Started 09/04/2023) Inhale 2 (two) puffs by mouth every 6 hours as needed for Shortness of Breath, Wheezing or Cough Active Problems Problem Noted Date Diagnosed Date Alcoholism 10/29/2024 Hyperglycemia 10/29/2024 Prediabetes 09/12/2024 Tobacco user 05/13/2024 Steatosis of liver 05/13/2024 Abnormal liver function tests 02/13/2024 Secondary hyperlipidemia 02/13/2024 Social History Tobacco Use Types Packs/Day Years [...] Comments Blood Pressure 127/93 10/29/2024 10:13 AM SENIOR RECRUITER Pulse 89 10/29/2024 10:13 AM SENIOR RECRUITER Temperature 37 C (98.6 F) 10/29/2024 10:13 AM SENIOR RECRUITER Respiratory Rate - - Oxygen Saturation 99% 10/29/2024 10:13 AM SENIOR RECRUITER Inhaled Oxygen Concentration - - Weight 66.2 kg (146 lb) 10/29/2024 10:13 AM SENIOR RECRUITER Height 170.2 cm (5' 7 ) 10/29/2024 10:13 AM SENIOR RECRUITER Body Mass Index 22.87 10/29/2024 10:13 AM SENIOR RECRUITER Procedures * HEMOCHROMATOSIS MUTATION PANEL(Performed 10/29/2024) Performed for Abnormal liver function tests * [id number]-[id number] BLOOD PHENOTYPING PANEL(Performed 10/29/2024) Performed for Abnormal liver function tests * MITOCHONDRIAL ANTIBODY SCREEN(Performed 10/29/2024) Performed for Abnormal liver function tests * FERRITIN(Performed 10/29/2024) Performed for Abnormal liver function tests * PT-INR [facility](Performed 10/29/2024) Performed for Abnormal liver function tests * COMPREHENSIVE METABOLIC PANEL(Performed 10/29/2024) Performed for Abnormal liver function tests * CBC W AUTO DIFFERENTIAL(Performed 10/29/2024) Performed for Abnormal liver function tests * SMOOTH MUSCLE ANTIBODY W REFLEX TITER(Performed 10/29/2024) Performed for Abnormal liver function tests * FL LIVER ELASTOGRAPHY(Performed 10/29/2024) Performed for Fatty liver Results * (ABNORMAL) PT-INR [facility] (10/29/2024 12:19 PM SENIOR RECRUITER) PT 11.9(L) 12.1 - 14.8 Seconds 10/29/2024 1:31 PM [facility] INR 0.9 See Comment 10/29/2024 1:31 PM [facility] Comment:The suggested therap eutic range for standard coumadin (warfarin) therapy is an INR of 2.0-3.0. For high-risk patients (Mechanical Mitral Valve Prosthesis, etc.), the suggested prophylactic therapeutic range is an INR of 2.5-3.5. Blood BLOOD SPECIMEN / Unknown Lab Venipuncture / Unknown 10/29/2024 12:19 PM SENIOR RECRUITER 10/29/2024 12:39 PM SENIOR RECRUITER Ivonne Cedeño BRIDGE TOLL COLLECTOR-SEED PRODUCTION FIELD SUPERVISOR LAB - COAGUL ATION ORDERABLES [address] [address], [facility] [phone] * SMOOTH MUSCLE ANTIBODY W REFLEX TITER (10/29/2024 12:19 PM SENIOR RECRUITER) F-Actin Antibody IgG 9 0 - 19 Units 10/30/2024 11:14 PM SENIOR RECRUITER [employer] ([facility]) Comment: If F-Actin (Smooth Muscle) Antibody, IgG [...] suspicion for AIH is strong. Performed By: [employer] [address] [place] [id number] Student Dean: Melvin Ibarra MD, PhD CLIA Number: [id number] Blood BLOOD SPECIMEN / Unknown Lab Venipuncture / Unknown 10/29/2024 12:19 PM SENIOR RECRUITER 10/29/2024 12:39 PM SENIOR RECRUITER Ivonne Cedeño BRIDGE TOLL COLLECTOR-SEED PRODUCTION FIELD SUPERVISOR LAB - SEROLO GY ORDERABLES Performing Organization Address [facility] de Phone Number [facility] [employer] ([facility]) [address] * (ABNORMAL) MITOCHONDRIAL ANTIBODY SCREEN (10/29/2024 12:19 PM SENIOR RECRUITER) Pathologist [facility] Mitochondrial M2 Antibody 33.1(H) 0.0 - 24.9 Units 10/30/2024 11:14 PM SENIOR RECRUITER [facility] ([facility]) Comment: REFERENCE INTERVAL: Mitochondrial (M2) Antibody, IgG [...] does not rule out PBC. Performed By: [facility] [facility] [address] [place] [address] Student Dean: Melvin Ibarra MD, PhD CLIA Number: [id number] Blood BLOOD SPECIMEN / Unknown Lab Venipuncture / Unknown 10/29/2024 12:19 PM SENIOR RECRUITER 10/29/2024 12:39 PM SENIOR RECRUITER Ivonne Cedeño APRN-[facility] LAB - CHEMIS TRY ORDERABLES Performing Organization Address [facility] de Phone Number [facility] [employer] ([facility]) [address] * [id number] BLOOD PHENOTYPING PANEL (10/29/2024 12:19 PM SENIOR RECRUITER) Pathologist [facility] Dgnfp-7-Ysugxmppri n Phenotype MM 11/01/2024 5:52 PM SENIOR RECRUITER [facility] [employer] ([facility]) Comment: The patient appears to have a normal phenotype. All M alleles (including subtypes M1, M2, and M3) produce normal serum concentrations of azwfi-7-ztpgvbtf inhibitor and are not associated with clinical disease. Caution in interpretation is advised if the patient has been transfused within the previous 21 days. Performed By: [facility] [address] [place] [address] Student Dean: Melvin Ibarra MD, PhD CLIA Number: [id number] Rjxhp-8-Yhjntitmln n 170 90 - 200 mg/dL 11/01/2024 5:52 PM SENIOR RECRUITER [facility] ([facility]) Comment:To convert to umol/L , multiply mg/dL by 0.185 Blood BLOOD SPECIMEN / Unknown Lab Venipuncture / Unknown 10/29/2024 12:19 PM SENIOR RECRUITER 10/29/2024 12:39 PM SENIOR RECRUITER Ivonne Cedeño APRN-SEED PRODUCTION FIELD SUPERVISOR LAB - CHEMIS TRY ORDERABLES [facility]) [address] [place] [address], [facility] * HEMOCHROMATOSIS MUTATION PANEL (10/29/2024 12:19 PM SENIOR RECRUITER) HFE C282Y Mutation Negative 2024 7:15 AM SENIOR RECRUITER [employer] ([facility]) HFE Specimen Source Whole Blood 11/02/2024 7:15 AM SENIOR RECRUITER [facility] ([facility]) HFE H63D Mutation Heterozygous 11/02 7:15 AM SENIOR RECRUITER [facility]) HFE S65C Mutation Negative 025 7:15 AM SENIOR RECRUITER [facility]) Interpretation HFE Mutation See Note 11/02/2024 7:15 AM SENIOR RECRUITER [facility] [employer] ([facility]) Comment: Indication for testing: Carrier screening or [...] developed and its performance characteristics determined by [facility] [facility]. It has not been cleared or approved by the [place] Food and Drug Administration. This test was performed in a CLIA certified laboratory and is intended for clinical purposes. Counseling and informed consent are recommended for genetic testing. Consent forms are available online. Performed By: [employer] [address] [place] [address] Student Dean: Melvin Ibarra MD, PhD CLIA Number: [id number] Blood BLOOD SPECIMEN / Unknown Lab Venipuncture / Unknown 10/29/2024 12:19 PM SENIOR RECRUITER 10/29/2024 12:48 PM SENIOR RECRUITER Ivonne Cedeño BRIDGE TOLL COLLECTOR-SEED PRODUCTION FIELD SUPERVISOR LAB - CHEMIS TRY ORDERABLES [facility] ([facility]) [address] [place] [address] * (ABNORMAL) CBC WITH DIFFERENTIAL (10/29/2024 12:19 PM SENIOR RECRUITER) [facility] WBC 5.4 4.0 - 10.7 x10E9/L 10/29/2024 12:57 PM SENIOR RECRUITER [facility] RBC Count 5.46 4.30 - 5.80 x10E12/L 10/29/2024 12:57 PM [facility] Hemoglobin 17.7(H) 13.3 - 17.5 g/dL 10/29/2024 12:57 PM [facility] Hematocrit 50.4 38.7 - 51.1 % 10/29/2024 12:57 PM [facility] MCV 92.3 80.0 - 98.0 fL 10/29/2024 12:57 PM [facility] MCH 32.4 26.7 - 33.6 pg 10/29/2024 12:57 PM [facility] MCHC 35.1 31.7 - 36.3 g/dL 10/29/2024 12:57 PM [facility] RDW-CV 12.6 11.3 - 14.8 % 10/29/2024 12:57 PM [facility] Platelet Count 239 150 - 420 x10E9/L 10/29/2024 12:57 PM [facility] MPV 9.1 7.8 - 11.4 fL 10/29/2024 12:57 PM [facility] Neutrophil % 52.1 41.0 - 74.0 % 10/29/2024 12:57 PM [facility] Lymphocyte % 36.5 17.0 - 47.0 % 10/29/2024 12:57 PM [facility] Monocyte % 8.3 3.0 - 11.0 % 10/29/2024 12:57 PM [facility] Eosinophil % 2.0 0.0 - 7.0 % 10/29/2024 12:57 PM [facility] Basophil % 0.7 0.0 - 1.6 % 10/29/2024 12:57 PM [facility] Immature Granulocytes % 0.4 0.0 - 1.0 % 10/29/2024 12:57 PM [facility] Neutrophil Absolute 2.82 1.60 - 7.50 x10E9/L 10/29/2024 12:57 PM [facility] Lymphocyte Absolute 1.98 1.00 - 4.40 x10E9/L 10/29/2024 12:57 PM [facility] Monocyte Absolute 0.45 0.15 - 1.00 x10E9/L 10/29/2024 12:57 PM [facility] Eosinophil Absolute 0.11 0.00 - 0.60 x10E9/L 10/29/2024 12:57 PM [facility] Basophil Absolute 0.04 0.00 - 0.13 x10E9/L 10/29/2024 12:57 PM [facility] Blood BLOOD SPECIMEN / Unknown Lab Venipuncture / Unknown 10/29/2024 12:19 PM SENIOR RECRUITER 10/29/2024 12:48 PM SENIOR RECRUITER Ivonne Cedeño BRIDGE TOLL COLLECTOR-SEED PRODUCTION FIELD SUPERVISOR LAB - HEMATO LOGY ORDERABLES [facility] [address] [place] [address], [facility] [phone] * (ABNORMAL) COMPREHENSIVE METABOLIC PANEL (10/29/2024 12:19 PM SENIOR RECRUITER) BUN 15 7 - 26 mg/dL 10/29/2024 1:02 PM [facility] Creatinine 0.96 0.71 - 1.16 mg/dL 10/29/2024 1:02 PM [facility] Sodium 137 136 - 145 mmol/L 10/29/2024 1:02 PM [facility] Potassium 4.8(H) 3.5 - 4.5 mmol/L 10/29/2024 1:02 PM [facility] Chloride 105 98 - 107 mmol/L 10/29/2024 1:02 PM [facility] CO2 22 22 - 29 mmol/L 10/29/2024 1:02 PM [facility] Glucose 86 70 - 99 mg/dL 10/29/2024 1:02 PM [facility] Calcium 9.6 8.4 - 10.2 mg/dL 10/29/2024 1:02 PM [facility] Protein Total 8.2 6.0 - 8.3 g/dL 10/29/2024 1:02 PM [facility] Albumin 4.8 3.4 - 5.0 g/dL 10/29/2024 1:02 PM [facility] Bilirubin Total 0.3 0.2 - 1.2 mg/dL 10/29/2024 1:02 PM [facility] Alkaline Phosphatase 81 40 - 150 U/L 10/29/2024 1:02 PM [facility] ALT 51 5 - 55 U/L 10/29/2024 1:02 PM [facility] AST 34 5 - 34 U/L 10/29/2024 1:02 PM [facility] Anion Gap 10 6 - 16 10/29/2024 1:02 PM [facility] BUN/Creatinine Ratio 16 7 - 23 10/29/2024 1:02 PM [facility] Osmolality Calculated 284 275 - 295 mOsm/kg 10/29/2024 1:02 PM [facility] Albumin/Globulin Ratio 1.4 1.1 - 2.3 10/29/2024 1:02 PM [facility] eGFR by CKD-EPI >90 >=90 mL/min/1.7 3 m2 10/29/2024 1:02 PM [facility] Blood BLOOD SPECIMEN / Unknown Lab Venipuncture / Unknown 10/29/2024 12:19 PM SENIOR RECRUITER 10/29/2024 12:40 PM SENIOR RECRUITER Ivonne Cedeño APRN-SEED PRODUCTION FIELD SUPERVISOR LAB - CHEMIS TRY ORDERABLES Performing Organization Address City/[facility]/ZIP Co de Phone Number [address] [address], [place] [phone] * (ABNORMAL) FERRITIN (10/29/2024 12:19 PM SENIOR RECRUITER) Ferritin 359(H) 22 - 275 ng/mL 10/29/2024 1:21 PM [facility] Blood BLOOD SPECIMEN / Unknown Lab Venipuncture / Unknown 10/29/2024 12:19 PM SENIOR RECRUITER 10/29/2024 12:39 PM SENIOR RECRUITER Ivonne Cedeño BRIDGE TOLL COLLECTOR-SEED PRODUCTION FIELD SUPERVISOR LAB - CHEMIS TRY ORDERABLES Performing Organization Address City/[facility]/ZIP Co de Phone Number [address] [address], [place] [phone] * FL LIVER ELASTOGRAPHY (10/29/2024 9:51 AM SENIOR RECRUITER) Narrative Augustine Cordero MD - 10/29/2024 9:51 AM SENIOR RECRUITER Augustine Cordero MD 10/29/2024 4:22 PM Diagnosis: [...] patients with nonalcoholic fatty liver disease. Gastroenterology 2019;156:2491-5779. Bridger MS, Jared R, Van Natta ML, et al. Vibration-controlled transient elastography to [...] fibrosis. These include the FAST (Fibroscan-AST) score (Woreta, 2022) and the Agile3+ and Agile4 scores (Karan, 2023). Maggie TA, Van Az ML, Judy M, Fernandez A, et al. Validation of the accuracy of the FAST score for detecting patients with at-risk nonalcoholic steatohepatitis (RICHARDSON) in a [place] cohort and comparison to other non-invasive algorithms. PLoS ONE (2021) 17: [id number]. Karan AJ, Bobbi J, Shaun ZM, et al. Enhanced diagnosis of advanced fibrosis and cirrhosis in individuals with NAFLD using FibroScan-based Agile scores. J Hepatol (2022) 78: 247-259. Fibroscan LSM can also be used with laboratory parameters without formulas to assess prognosis. According to the Baveno-VII criteria (Clark, 202), Fibroscan LSM <=15 kPa plus a platelet count of >=908h497/L rules out clinically significant portal hypertension (sensitivity and negative predictive value >90%) in patients with compensated advanced chronic liver disease. Clark R, Hong J, Harinder-Eliane G, Rachelle T, Benigno C on behalf of the Baveno VII Faculty. Baveno VII--Renewing consensus in portal hypertension. J Hepatol (2021) 76: 959-974 Assessing the likelihood of advanced fibrosis in patients with intermediate liver stiffness measurement (LSM) by Fibroscan (e.g., 8-15 kPa) can be improved by also calculating the FIB-4 score (Kala et al. Hepatology Communications 2019;3:0997-6839) or NAFLD Fibrosis score (Conte et al. Clinical Gastroenterology and Hepatology 2019;17:8058-2631 using routine clinical data. Note: 1. Fibroscan [...] additional interpretive data was last updated 03/01/23.) [email or web address] Ivonne Cedeño BRIDGE TOLL COLLECTOR-SEED PRODUCTION FIELD SUPERVISOR PROCEDURE/[place] NOR SURGICAL ORDERABLES Care Teams Handbag Operator Relationship Specialty Start Date End Date Justino Rivera MD [address] [place] [address] PCP - General Family Medicine 10/29/24
--- OUTSIDE RECORDS SUMMARY | 2024-12-14 14:40 | XMS_ITS | Referral Summary ---
Author Organization [facility] Address [address] [facility] [place] [address] Care Team Providers Care Tooth Clerk Name Role Phone Justino Rivera MD Primary Care Provider Source Comments [facility],non-owned Affiliates and Associated Physician Practices is amultiple site organization consisting of ambulatory clinics and hospital sitesin [place], [place], [place] and [place]. This disclosure is being madepursuant to the Care Everywhere program and may not contain all information available regarding this patient. Last updated 18.[facility] [employer] Encounters Date Type Department Care Team Description 11/17/2024 Telephone [facility] - [facility] [place] [phone] Ne Chavez RN General (Call back) 10/29/2024 11:40 AM KRAFT DIGESTER OPERATOR - 10/29/2024 11:59 PM KRAFT DIGESTER OPERATOR Hospital Encounter [facility] OP DRAW STATION [address] [place] [phone] Discharge Disposition: Home or Self Care 10/29/2024 Travel 10/29/2024 10:30 AM KRAFT DIGESTER OPERATOR Office Visit [facility] - [address] [place] [phone] Ivonne Cedeño, MACHINE PAN GREASER-HEEL PAINTER Abnormal liver function tests (Primary Dx) 10/29/2024 10:00 AM KRAFT DIGESTER OPERATOR Procedure visit [facility] - [facility] [place] [phone] Unknown, Provider Fatty liver 10/21/2024 Telephone [facility] - [facility] [address] [facility], [place] [address] Ne Chavze, RN Appointment from Last 3 Months Allergies No known active allergies Medications * [...] Comments Blood Pressure 127/93 10/29/2024 10:13 AM KRAFT DIGESTER OPERATOR Pulse 89 10/29/2024 10:13 AM KRAFT DIGESTER OPERATOR Temperature 37 C (98.6 F) 10/29/2024 10:13 AM KRAFT DIGESTER OPERATOR Respiratory Rate - - Oxygen Saturation 99% 10/29/2024 10:13 AM KRAFT DIGESTER OPERATOR Inhaled Oxygen Concentration - - Weight 66.2 kg (146 lb) 10/29/2024 10:13 AM KRAFT DIGESTER OPERATOR Height 170.2 cm (5' 7 ) 10/29/2024 10:13 AM KRAFT DIGESTER OPERATOR Body Mass Index 22.87 10/29/2024 10:13 AM KRAFT DIGESTER OPERATOR Plan of Treatment Upcoming Encounters Date Type Department Care Team (Late st Contact Info) Description 05/06/2025 10:00 AM CDT Procedure visit [facility] - [facility] [address] [facility], [place] [phone] 05/06/2025 10:30 AM CDT Office Visit [facility] - [facility] [address] [place] [phone] Ivonne Cedeño, MACHINE PAN GREASER-HEEL PAINTER [address] [place] [address] [place] [address] Goals Goal Patient Goal Type Associated Problems Recent Progress Patient-Stated? Author Medication Management General On track( 025 10:18 AM KRAFT DIGESTER OPERATOR) Pebbles Paulino, RN Note: Expected end date: ongoing Interventions: Take all medications as prescribed Let your doctor know right away about any changes in your medications Make sure to request a refill of your medication at least one week prior to your last dose Procedures Procedure Name Priority Date/Time Associated Diagnosis Comments HEMOCHROMATOSIS MUTATION PANEL Routine 10/29/2024 12:19 PM KRAFT DIGESTER OPERATOR Abnormal liver function tests [id number] BLOOD PHENOTYPING PANEL Routine 10/29/2024 12:19 PM KRAFT DIGESTER OPERATOR Abnormal liver function tests MITOCHONDRIAL ANTIBODY SCREEN Routine 10/29/2024 12:19 PM KRAFT DIGESTER OPERATOR Abnormal liver function tests FERRITIN Routine 10/29/2024 12:19 PM KRAFT DIGESTER OPERATOR Abnormal liver function tests PT-INR [facility] Routine 10/29/2024 12:19 PM KRAFT DIGESTER OPERATOR Abnormal liver function tests COMPREHENSIVE METABOLIC PANEL Routine 10/29/2024 12:19 PM KRAFT DIGESTER OPERATOR Abnormal liver function tests CBC W AUTO DIFFERENTIAL Routine 10/29/19 12:19 PM KRAFT DIGESTER OPERATOR Abnormal liver function tests SMOOTH MUSCLE ANTIBODY W REFLEX TITER Routine 10/29/2024 12:19 PM KRAFT DIGESTER OPERATOR Abnormal liver function tests NE LIVER ELASTOGRAPHY Routine 10/29/2024 9:51 AM KRAFT DIGESTER OPERATOR Fatty liver from Last 3 Months Results * (ABNORMAL) PT-INR [facility] (10/29/2024 12:19 PM KRAFT DIGESTER OPERATOR) Pathologist [facility] PT 11.9(L) 12.1 - 14.8 Seconds 10/29/2024 1:31 PM KRAFT DIGESTER OPERATOR [facility] INR 0.9 See Comment 10/29/2024 1:31 PM KRAFT DIGESTER OPERATOR [facility] Comment:The suggested therap eutic range for standard coumadin (warfarin) therapy is an INR of 2.0-3.0. For high-risk patients (Mechanical Mitral Valve Prosthesis, etc.), the suggested prophylactic therapeutic range is an INR of 2.5-3.5. Blood BLOOD SPECIMEN / Unknown Lab Venipuncture / Unknown 10/29/2024 12:19 PM KRAFT DIGESTER OPERATOR 10/29/2024 12:39 PM KRAFT DIGESTER OPERATOR Ivonne Cedeño MACHINE PAN GREASER-HEEL PAINTER LAB - COAGUL ATION ORDERABLES Performing Organization Address City/State/[facility] Co de Phone Number [facility] [address] [place] [phone], [facility] [phone] * SMOOTH MUSCLE ANTIBODY W REFLEX TITER (10/29/2024 12:19 PM KRAFT DIGESTER OPERATOR) Pathologist [facility] F-Actin Antibody IgG 9 0 - 19 Units 10/30/2024 11:14 PM KRAFT DIGESTER OPERATOR [facility] ([facility]) Comment: If F-Actin (Smooth Muscle) Antibody, [...] suspicion for AIH is strong. Performed By: [employer] [address] [place] [address] Registered Nurse Post Partum: Melvin Ibarra MD, PhD CLIA Number: [id number] Blood BLOOD SPECIMEN / Unknown Lab Venipuncture / Unknown 10/29/2024 12:19 PM KRAFT DIGESTER OPERATOR 10/29/2024 12:39 PM KRAFT DIGESTER OPERATOR Ivonne Cedeño MACHINE PAN GREASER-HEEL PAINTER LAB - SEROLO ORDERABLES [facility] [employer] [facility]) [address] [place] [address] * (ABNORMAL) MITOCHONDRIAL ANTIBODY SCREEN (10/29/2024 12:19 PM KRAFT DIGESTER OPERATOR) Mitochondrial M2 Antibody 33.1(H) 0.0 - 24.9 Units 10/30/2024 11:14 PM KRAFT DIGESTER OPERATOR [facility] [employer] ([facility]) Comment: REFERENCE INTERVAL: Mitochondrial (M2) Antibody, [...] does not rule out PBC. Performed By: [employer] [address] [place] [address] Registered Nurse Post Partum: Melvin Ibarra MD, PhD CLIA Number: [id number] Blood BLOOD SPECIMEN / Unknown Lab Venipuncture / Unknown 10/29/2024 12:19 PM KRAFT DIGESTER OPERATOR 10/29/2024 12:39 PM KRAFT DIGESTER OPERATOR Ivonne Cedeño [facility] - CHEMIS TRY ORDERABLES Performing Organization Address [facility] de Phone Number [facility] [employer] [facility]) [address] * [id number] BLOOD PHENOTYPING PANEL (10/29/2024 12:19 PM KRAFT DIGESTER OPERATOR) Jxjja-4-Bgvixfbpnw n Phenotype MM 11/01/2024 5:52 PM KRAFT DIGESTER OPERATOR [facility] ([facility]) Comment: The patient appears to have a normal phenotype. All M alleles (including subtypes M1, M2, and M3) produce normal serum concentrations of wdegl-2-jniotjhg inhibitor and are not associated with clinical disease. Caution in interpretation is advised if the patient has been transfused within the previous 21 days. Performed By: [employer] [address] [place] [address] Registered Nurse Post Partum: Melvin Ibarra MD, PhD CLIA Number: [id number] Rbwtk-0-Zicnmwkbvr n 170 90 - 200 mg/dL 11/01/2024 5:52 PM KRAFT DIGESTER OPERATOR [employer] ([facility]) Comment:To convert to umol/L , multiply mg/dL by 0.185 Blood BLOOD SPECIMEN / Unknown Lab Venipuncture / Unknown 10/29/2024 12:19 PM KRAFT DIGESTER OPERATOR 10/29/2024 12:39 PM KRAFT DIGESTER OPERATOR Ivonne Cedeño [facility] - CHEMIS TRY ORDERABLES Performing Organization Address [facility] Co de Phone Number [facility] [employer] ([facility]) [address] * HEMOCHROMATOSIS MUTATION PANEL (10/29/2024 12:19 PM KRAFT DIGESTER OPERATOR) HFE C282Y Mutation Negative 2024 7:15 AM KRAFT DIGESTER OPERATOR [facility] ([facility]) HFE Specimen Source Whole Blood 11/02/2024 7:15 AM KRAFT DIGESTER OPERATOR [facility]) HFE H63D Mutation Heterozygous 11/02 7:15 AM [facility] ([facility]) HFE S65C Mutation Negative 025 7:15 AM [facility] ([facility]) Interpretation HFE Mutation See Note 11/02/2024 7:15 AM [facility] ([facility]) Comment: Indication for testing: Carrier screening [...] developed and its performance characteristics determined by [employer]. It has not been cleared or approved by the US Food and Drug Administration. This test was performed in a CLIA certified laboratory and is intended for clinical purposes. Counseling and informed consent are recommended for genetic testing. Consent forms are available online. Performed By: [employer] [address] [place] [id number] Registered Nurse Post Partum: Melvin Ibarra MD, PhD CLIA Number: [id number] Blood BLOOD SPECIMEN / Unknown Lab Venipuncture / Unknown 10/29/2024 12:19 PM KRAFT DIGESTER OPERATOR 10/29/2024 12:48 PM KRAFT DIGESTER OPERATOR Ivonne Cedeño MACHINE PAN GREASER-HEEL PAINTER LAB - CHEMIS TRY ORDERABLES [facility]) [address] [place] [address] * (ABNORMAL) CBC WITH DIFFERENTIAL (10/29/2024 12:19 PM KRAFT DIGESTER OPERATOR) WBC 5.4 4.0 - 10.7 x10E9/L 10/29/2024 12:57 PM [facility] RBC Count 5.46 4.30 - 5.80 x10E12/L 10/29/2024 12:57 PM [facility] Hemoglobin 17.7(H) 13.3 - 17.5 g/dL 10/29/2024 12:57 PM [facility] Hematocrit 50.4 38.7 - 51.1 % 10/29/2024 12:57 PM [facility] MCV 92.3 80.0 - 98.0 fL 10/29/2024 12:57 PM [facility] MCH 32.4 26.7 - 33.6 pg 10/29/2024 12:57 PM [facility] MCHC 35.1 31.7 - 36.3 g/dL 10/29/2024 12:57 PM [facility] RDW-CV 12.6 11.3 - 14.8 % 10/29/2024 12:57 PM [facility] Platelet Count 239 150 - 420 x10E9/L 10/29/2024 12:57 PM [facility] MPV 9.1 7.8 - 11.4 fL 10/29/2024 12:57 PM [facility] Neutrophil % 52.1 41.0 - 74.0 % 10/29/2024 12:57 PM [facility] Lymphocyte % 36.5 17.0 - 47.0 % 10/29/2024 12:57 PM KRAFT DIGESTER OPERATOR [facility] Monocyte % 8.3 3.0 - 11.0 % 10/29/2024 12:57 PM [facility] Eosinophil % 2.0 0.0 - 7.0 % 10/29/2024 12:57 PM [facility] Basophil % 0.7 0.0 - 1.6 % 10/29/2024 12:57 PM [facility] Immature Granulocytes % 0.4 0.0 - 1.0 % 10/29/2024 12:57 PM [facility] Neutrophil Absolute 2.82 1.60 - 7.50 x10E9/L 10/29/2024 12:57 PM [facility] Lymphocyte Absolute 1.98 1.00 - 4.40 x10E9/L 10/29/2024 12:57 PM [facility] Monocyte Absolute 0.45 0.15 - 1.00 x10E9/L 10/29/2024 12:57 PM [facility] Eosinophil Absolute 0.11 0.00 - 0.60 x10E9/L 10/29/2024 12:57 PM [facility] Basophil Absolute 0.04 0.00 - 0.13 x10E9/L 10/29/2024 12:57 PM [facility] Blood BLOOD SPECIMEN / Unknown Lab Venipuncture / Unknown 10/29/2024 12:19 PM KRAFT DIGESTER OPERATOR 10/29/2024 12:48 PM [facility] Ivonne Cedeño MACHINE PAN GREASER-HEEL PAINTER LAB - HEMATO LOGY ORDERABLES Performing Organization Address [facility] Co de Phone Number [address] [phone] [phone] * (ABNORMAL) COMPREHENSIVE METABOLIC PANEL (10/29/2024 12:19 PM KRAFT DIGESTER OPERATOR) BUN 15 7 - 26 mg/dL 10/29/2024 1:02 PM [facility] Creatinine 0.96 0.71 - 1.16 mg/dL 10/29/2024 1:02 PM [facility] Sodium 137 136 - 145 mmol/L 10/29/2024 1:02 PM [facility] Potassium 4.8(H) 3.5 - 4.5 mmol/L 10/29/2024 1:02 PM [facility] Chloride 105 98 - 107 mmol/L 10/29/2024 1:02 PM [facility] CO2 22 22 - 29 mmol/L 10/29/2024 1:02 PM [facility] Glucose 86 70 - 99 mg/dL 10/29/2024 1:02 PM [facility] Calcium 9.6 8.4 - 10.2 mg/dL 10/29/2024 1:02 PM [facility] Protein Total 8.2 6.0 - 8.3 g/dL 10/29/2024 1:02 PM [facility] Albumin 4.8 3.4 - 5.0 g/dL 10/29/2024 1:02 PM [facility] Bilirubin Total 0.3 0.2 - 1.2 mg/dL 10/29/2024 1:02 PM [facility] Alkaline Phosphatase 81 40 - 150 U/L 10/29/2024 1:02 PM [facility] ALT 51 5 - 55 U/L 10/29/2024 1:02 PM [facility] AST 34 5 - 34 U/L 10/29/2024 1:02 PM [facility] Anion Gap 10 6 - 16 10/29/2024 1:02 PM [facility] BUN/Creatinine Ratio 16 7 - 23 10/29/2024 1:02 PM [facility] Osmolality Calculated 284 275 - 295 mOsm/kg 10/29/2024 1:02 PM [facility] Albumin/Globulin Ratio 1.4 1.1 - 2.3 10/29/2024 1:02 PM [facility] eGFR by CKD-EPI >90 >=90 mL/min/1.7 3 m2 10/29/2024 1:02 PM [facility] Blood BLOOD SPECIMEN / Unknown Lab Venipuncture / Unknown 10/29/2024 12:19 PM KRAFT DIGESTER OPERATOR 10/29/2024 12:40 PM [facility] Ivonne Cedeño MACHINE PAN GREASER-HEEL PAINTER LAB - CHEMIS TRY ORDERABLES Performing Organization Address City/State/[facility] Co de Phone Number [facility] [address] [place] [phone], [place] [phone] * (ABNORMAL) FERRITIN (10/29/2024 12:19 PM KRAFT DIGESTER OPERATOR) Ferritin 359(H) 22 - 275 ng/mL 10/29/2024 1:21 PM KRAFT DIGESTER OPERATOR [facility] Blood BLOOD SPECIMEN / Unknown Lab Venipuncture / Unknown 10/29/2024 12:19 PM KRAFT DIGESTER OPERATOR 10/29/2024 12:39 PM KRAFT DIGESTER OPERATOR Ivonne HENDERSON LAB - CHEMIS TRY ORDERABLES [facility] [address] [place] [address], [facility] [phone] * NE LIVER ELASTOGRAPHY (10/29/2024 9:51 AM KRAFT DIGESTER OPERATOR) Narrative Augustine Cordero MD - 10/29/2024 9:51 AM KRAFT DIGESTER OPERATOR Augustine Cordero MD 10/29/2024 4:22 PM Diagnosis: [...] patients with nonalcoholic fatty liver disease. Gastroenterology 2019;156:9141-3858. Bridger MS, Jared R, Van Natta ML, [...] and the Agile3+ and Agile4 scores (Karan, 2022). Maggie TA, Van Natta ML, Judy M, Fernandez A, et al. Validation of the accuracy of the FAST score for detecting patients with at-risk nonalcoholic steatohepatitis (RICHARDSON) in a [facility] cohort and comparison to other non-invasive algorithms. PLoS ONE (2021) 17: [id number]. Karan AJ, Bobbi J, Shaun ZM, et al. Enhanced diagnosis of advanced fibrosis and cirrhosis in individuals with NAFLD using FibroScan-based Agile scores. J Hepatol (2022) 78: 247-259. Fibroscan LSM can also be used with laboratory parameters without formulas to assess prognosis. According to the Baveno-VII criteria (Clark, 2021), Fibroscan LSM <=15 kPa plus a platelet count of >=262p291/L rules out clinically significant portal hypertension (sensitivity and negative predictive value >90%) in patients with compensated advanced chronic liver disease. Clark R, Hong J, Harinder-Eliane G, Rachelle T, Benigno Portillo on behalf of the Baveno VII Faculty. Baveno VII--Renewing consensus in portal hypertension. J Hepatol (2021) 76: 959-974 Assessing the likelihood of advanced fibrosis in patients with intermediate liver stiffness measurement (LSM) by Fibroscan (e.g., 8-15 kPa) can be improved by also calculating the FIB-4 score (Kala et al. Hepatology Communications 2019;3:8708-3501) or NAFLD Fibrosis score (Conte et al. Clinical Gastroenterology and Hepatology 2019;17:2740-7912 using routine clinical data. Note: 1. Fibroscan [...] additional interpretive data was last updated 03/01/23.) [email or web address] Ivonne Cedeño MACHINE PAN GREASER-HEEL PAINTER PROCEDURE/OK NOR SURGICAL ORDERABLES from Last 3 Months Care Teams Tooth Clerk Relationship Specialty Start Date End Date Justino Rivera MD [address] [place] [address] PCP - General Family Medicine 10/29/24
== END 2024-12-14 14:23 | disposition home or self-care (01) ==
LOC: ANHIMG 14:32
PROVIDERS: PCP Internal Medicine; Visit Provider Internal Medicine
DX: I65.23 Occlusion and stenosis of bilateral carotid arteries (principal); R93.89 Abnormal findings on diagnostic imaging of other specified body structures
CPT/HCPCS: 93880